=== PATIENT | male | born 1955 | race Caucasian/White ===

== ENCOUNTER 2023-02-12 15:34 | Inpatient (IN) ==
--- NOTE | 2023-02-12 15:50 | DR.ABDMALE ---
HPI Time seen Time Seen by Provider: 02/12/23 15:47 HPI comment HPI Comment: c/o rlq abd pain x 2 weeks worse with standing up no nausea no vomit no fever bm nl hx chf copd a fib pain is intermittent PMH PMH Past Medical History: COPD, Coronary Artery Disease and Hypertension Past Surgical History: Yes Surgical History: CABG/Valve Surgery Family History Family Medical History: Coronary Artery Disease and Hypertension Social History Do you use any recreational Drugs:: Yes ROS Review of Systems Constitutional: No Symptoms Reported Respiratoy: Non-Productive Cough Gastrointestinal/Abdominal: See HPI Musculoskeletal: No Symptoms Reported Hematologic/Lymphatic: No Symptoms Reported All Other Systems: Reviewed and Negative PE Vital Signs Vital Signs: Temp Pulse Resp BP Pulse Ox O2 Del Method 02/12/23 17:15 79 23 97 02/12/23 17:01 80 21 98 02/12/23 17:01 158/65 02/12/23 17:00 83 20 97 02/12/23 16:46 90 31 H 97 02/12/23 16:31 74 34 H 95 02/12/23 16:31 130/59 02/12/23 16:30 76 28 H 98 02/12/23 16:15 75 20 98 02/12/23 16:00 81 22 97 02/12/23 16:00 123/58 02/12/23 15:58 85 19 98 02/12/23 15:58 133/61 02/12/23 15:48 98.7 F 78 20 134/60 93 L Room Air Head Head Exam: Normal Inspection ENT ENT Exam: Normal Exam Chest Chest Inspection: Symmetric Chest Wall Rise Respiratory Respiratory Exam: Bilateral: Decreased Breath Sounds Abdominal Exam Abdominal Exam: Distention (obese ) and Other (obese tender rlq ?guard no rebound ) Back Back Exam: Normal Inspection Extremeties Extremities Exam: Edema (+3 edema) Psychiatric Psychiatric Exam: Normal Affect COURSE Treatment Treatment: spoke with Dr Serra who will admit for uncomplicated diverticulitis 6p ROR Labs Reviewed Laboratory Results Reviewed?: Yes 02/12/23 15:50 02/12/23 15:50 Laboratory: WBC 7.0 X10^3/uL (3.6-10.0) 02/12/23 15:50 RBC 4.57 X10^6/uL (4.7-6.0) L 02/12/23 15:50 Hgb 12.2 g/dL (13.5-18.0) L 02/12/23 15:50 Hct 38.1 % (42.0-54.0) L 02/12/23 15:50 MCV 83.3 fL (80.0-100.0) 02/12/23 15:50 MCH 26.8 pg (27.0-34.0) L 02/12/23 15:50 MCHC 32.1 g/dL (33.0-35.0) L 02/12/23 15:50 RDW 17.3 % (11.6-16.5) H 02/12/23 15:50 Plt Count 269 X10^3/uL (150.0-450.0) 02/12/23 15:50 MPV 8.2 fL (7.4-11.0) 02/12/23 15:50 Neut % (Auto) 66.4 % (42.0-75.0) 02/12/23 15:50 Lymph % (Auto) 19.7 % (21.0-51.0) L 02/12/23 15:50 [place] % (Auto) 8.9 % (0.0-13.0) 02/12/23 15:50 Eos % (Auto) 4.8 % (0.9-2.9) H 02/12/23 15:50 Baso % (Auto) 0.2 % (0.2-1.0) 02/12/23 15:50 Neut # (Auto) 4.6 x10^3/uL (2.2-4.8) 02/12/23 15:50 Lymph # (Auto) 1.4 X10^3/uL (1.3-2.9) 02/12/23 15:50 [place] # (Auto) 0.6 x10^3/uL (0.3-0.8) 02/12/23 15:50 Eos # (Auto) 0.3 x10^3/uL (0.0-0.2) H 02/12/23 15:50 Baso # (Auto) 0.0 X10^3/uL (0.0-0.1) 02/12/23 15:50 Absolute Nucleated RBC 0.1 /100WBC 02/12/23 15:50 Sodium 142 mmol/L (136-145) 02/12/23 15:50 Corrected Sodium TNP 02/12/23 15:50 Potassium 4.0 mmol/L (3.5-5.1) 02/12/23 15:50 Chloride 102 mmol/L (98-107) 02/12/23 15:50 Carbon Dioxide 38.0 mmol/L (21-32) H 02/12/23 15:50 BUN 29 mg/dL (7-18) H 02/12/23 15:50 Creatinine 0.99 mg/dL (0.70-1.30) 02/12/23 15:50 Est GFR (MDRD) Af Amer > 60 (>60) 02/12/23 15:50 Est GFR (MDRD) Non-Af > 60 (>60) 02/12/23 15:50 Glucose 98 mg/dL (65-99) 02/12/23 15:50 Calcium 9.4 mg/dL (8.5-10.1) 02/12/23 15:50 Corrected Calcium TNP 02/12/23 15:50 Total Bilirubin 0.40 mg/dL (0.2-1.0) 02/12/23 15:50 AST 13 Units/L (15-37) L 02/12/23 15:50 ALT 9 Units/L (12-78) L 02/12/23 15:50 Alkaline Phosphatase 44 Units/L (46-116) L 02/12/23 15:50 Troponin I High Sens 26.4 ng/L (4.0-60.0) 02/12/23 15:50 B-Natriuretic Peptide 788 pg/mL (0-79) H* 02/12/23 15:50 Total Protein 7.9 g/dL (6.4-8.2) 02/12/23 15:50 Albumin 3.4 g/dL (3.4-5.0) 02/12/23 15:50 Globulin 4.5 g/dL (2.5-4.5) 02/12/23 15:50 Albumin/Globulin Ratio 0.8 Ratio (1.1-2.1) L 02/12/23 15:50 Specimen Type Clean catch urine 02/12/23 15:53 Urine Color Yellow (YELLOW) 02/12/23 15:53 Urine Appearance Clear (CLEAR) 02/12/23 15:53 Urine pH 7.0 (5.0 - 8.0) 02/12/23 15:53 Ur Specific [place] 1.010 (1.000-1.030) 02/12/23 15:53 Urine Protein Negative (NEGATIVE) 02/12/23 15:53 Urine Glucose (UA) Negative (NEGATIVE) 02/12/23 15:53 Urine Ketones Negative (NEGATIVE) 02/12/23 15:53 Urine Blood Negative (NEGATIVE) 02/12/23 15:53 Urine Nitrite Negative (NEGATIVE) 02/12/23 15:53 Urine Bilirubin Negative (NEGATIVE) 02/12/23 15:53 Urine Urobilinogen Normal (NORMAL) 02/12/23 15:53 Ur Leukocyte Esterase Negative (NEGATIVE) 02/12/23 15:53 SARS-CoV-2 (PCR) Negative (NEGATIVE) 02/12/23 15:53 Influenza Type A (PCR) Negative (NEGATIVE) 02/12/23 15:53 Influenza Type B (PCR) Negative (NEGATIVE) 02/12/23 15:53 RSV (PCR) Negative (NEGATIVE) 02/12/23 15:53 XRAY X-ray Results: ct abd diverticulitis EKG Rate: 79 Rhythm: Afib Opioid Opioid Risk Tool Age (Elvis box if 16-45): No History of Preadolescent Sexual Abuse: No Total: 0 Total Score Risk Category: Low Risk Copyright: Bin LEI predicting aberrant behaviors Discharge Plan Diagnosis Discharge Problem: Abdominal pain determined by examination, CHF (congestive heart failure), Edema Hospital Course Hospital Course: pt has active diverticulitis with no abcess will admit Discharge Plan Patient Disposition: 09 ADMITTED INPATIENT Condition: Stable Prescriptions: No Action metformin 500 mg tablet 1 tab PO BID carvedilol 6.25 mg tablet 1 tab PO BID citalopram 40 mg tablet 0.5 tab PO QDAY lisinopril-hydrochlorothiazide 20-12.5 mg tablet 1 tab PO QDAY simvastatin 40 mg tablet 1 tab PO QPM cephalexin 500 mg capsule 1 cap PO QID esomeprazole magnesium 40 mg capsule,delayed release(DR/EC) 1 cap PO BID fenofibrate 160 mg tablet 1 tab PO QDAY aspirin 81 mg Capsule 81 mg PO QDAY furosemide [Lasix] 40 mg Tablet 40 mg PO BID Qty: 60 1RF Rx Instructions: Take one tab twice daily potassium chloride 10 mEq Capsule, Extended Release 20 meq PO QDAY Qty: 30 1RF Health Concerns: Post Hospitalization: new medications and changes needed to prevent readmission or further decline. Pt educated and given instructions on all concerns. Plan of Treatment: pt will be admitted to Dr Serra 6pm Follow ups/Referrals Follow ups/Referrals: Jeffrey Howell [Primary Care Provider] - 3 days Instructions Stand Alone Forms: Post Hospital Follow Up Care
[2023-02-12 15:51] VITALS: BMI 41.1
--- NOTE | 2023-02-12 15:53 | EKG ---
Test Reason : chest pain Blood Pressure : */* mmHG Vent. Rate : 79 BPM Atrial Rate : 227 BPM P-R Int : * ms QRS Dur : 118 ms QT Int : 368 ms P-R-T Axes : * -2 -13 degrees QTc Int : 421 ms Atrial flutter with variable AV block Incomplete right bundle branch block Cannot rule out Inferior infarct , age undetermined Cannot rule out Anterior infarct , age undetermined Abnormal ECG When compared with ECG of 06-AUG-2022 05:34, Atrial flutter has replaced Sinus rhythm Incomplete right bundle branch block has replaced Nonspecific intraventricular block Minimal criteria for Anterior infarct are now present Confirmed by Jerry Coley ([id number]) on 02/15/2023 6:30:35 AM Referred By: Confirmed By: Jerry Coley
[2023-02-12 16:01] LABS: BASOPHILS % (AUTO) 0.2 % (0.2-1.0); EOSINOPHILS # (AUTO) 0.3 x10^3/uL (0.0-0.2); EOSINOPHILS % (AUTO) 4.8 % (0.9-2.9); HEMATOCRIT 38.1 % (42.0-54.0); HEMOGLOBIN 12.2 g/dL (13.5-18.0); LYMPHOCYTES # (AUTO) 1.4 X10^3/uL (1.3-2.9); LYMPHOCYTES % (AUTO) 19.7 % (21.0-51.0); MEAN CORPUSCULAR HEMOGLOBIN 26.8 pg (27.0-34.0); MEAN CORPUSCULAR HGB CONC 32.1 g/dL (33.0-35.0); MEAN CORPUSCULAR VOLUME 83.3 fL (80.0-100.0); MEAN PLATELET VOLUME 8.2 fL (7.4-11.0); MONOCYTES # (AUTO) 0.6 x10^3/uL (0.3-0.8); MONOCYTES % (AUTO) 8.9 % (0.0-13.0); NEUTROPHILS # (AUTO) 4.6 x10^3/uL (2.2-4.8); NEUTROPHILS % (AUTO) 66.4 % (42.0-75.0); PLATELET COUNT 269 X10^3/uL (150.0-450.0); RED BLOOD COUNT 4.57 X10^6/uL (4.7-6.0); RED CELL DISTRIBUTION WIDTH 17.3 % (11.6-16.5)
[2023-02-12 16:02] LABS: BILIRUBIN,URINE NEGATIVE (NEGATIVE); BLOOD/HEMOGLOBIN,URINE NEGATIVE (NEGATIVE); GLUCOSE, URINE NEGATIVE (NEGATIVE); KETONES,URINE NEGATIVE (NEGATIVE); LEUKOCYTE ESTERASE ,URINE NEGATIVE (NEGATIVE); NITRITES,URINE NEGATIVE (NEGATIVE); PROTEIN,URINE NEGATIVE (NEGATIVE); UROBILINOGEN,URINE NORMAL (NORMAL)
[2023-02-12 16:15] LABS: ALANINE AMINOTRANSFERASE 9 Units/L (12-78); ALBUMIN 3.4 g/dL (3.4-5.0); ALKALINE PHOSPHATASE 44 Units/L (46-116); ASPARTATE AMINO TRANSFERASE 13 Units/L (15-37); BLOOD UREA NITROGEN 29 mg/dL (7-18); CALCIUM 9.4 mg/dL (8.5-10.1); CHLORIDE 102 mmol/L (98-107); CREATININE 0.99 mg/dL (0.70-1.30); GLUCOSE 98 mg/dL (65-99); SODIUM 142 mmol/L (136-145); TOTAL PROTEIN 7.9 g/dL (6.4-8.2); eGFR NON BLACK RACES > 60 (>60)
[2023-02-12 16:26] LABS: APPEARANCE,URINE CLEAR (CLEAR); COLOR,URINE YELLOW (YELLOW)
[2023-02-12] MEDS ORDERED: OMNIPAQUE 350 mg/mL 100 mL BTL 100 ML ONE (16:26)
--- NOTE | 2023-02-12 16:49 | RAD ---
EXAM:CHEST, 1 VIEWHISTORY:abd pain; BYPASS [id number]:08/08/2022FINDINGS:The cardiomediastinal silhouette is stable. Similar post sternotomy changes.No acute airspace disease. No pneumothorax or effusion.No acute osseous abnormality.IMPRESSION:No acute cardiopulmonary disease.THIS IS AN ELECTRONICALLY VERIFIED FINAL REPORT02/12/2023 4:46 PM - Electronically signed by Johnnie Uriarte MD
--- NOTE | 2023-02-12 16:54 | CT ---
HISTORYABD PAINSTUDYABDOMEN/PELVIS WITH CONCOMPARISONTECHNIQUEMultiple axial images of the abdomen and pelvis were obtained from the lung bases to the pubic symphysis after the administration of IV contrast. Dose reduction techniques including Automated Exposure Control (AEC) and adjustment of mA and kV were utilized.FINDINGSThe heart size is enlarged. There is a small right pleural effusion and mild bibasilar atelectasis. The liver is grossly normal. There are multiple stones in the gallbladder but no convincing evidence for cholecystitis. The pancreas is mildly atrophic. The spleen and adrenal glands are normal. The kidneys are both normal in size and enhancement and there is no mass, stone, or hydronephrosis on either side. The stomach is grossly normal as are the small bowel loops. The appendix is normal. There is diverticulosis in the distal colon and there is some mild inflammation in the fat surrounding the distal sigmoid colon and this is suggestive of mild sigmoid diverticulitis. Urinary bladder is grossly normal. The prostate gland measures 4.9 cm in diameter. There is severe systemic atherosclerosis. There are degenerative changes in the spine but there is no worrisome abnormality.IMPRESSION1. Small right pleural effusion and mild basilar atelectasis. 2. Cholelithiasis without cholecystitis. 3. Acute sigmoid DIVERTICULITIS, mild, without abscess or free air.Electronically signed by: Anibal Jama (Feb 12, 2023 16:53:26)
[2023-02-12] MEDS ORDERED: CIPRO IV 400 MG PREMIX* 400 MG/200 ML IV.SOLN. IV ONE ×2 (17:22→17:28)
[2023-02-12] MEDS ORDERED: MORPHINE SULFATE INJ 2 MG INJ IVP PRN (18:20)
[2023-02-12] MEDS ORDERED: ZOFRAN INJ 4 MG VIAL IVP PRN (18:20)
[2023-02-12] MEDS ORDERED: DUONEB 0.5 MG/3 MG (3 mL) NEB SCH (18:30)
[2023-02-12] MEDS ORDERED: NS 1,000 ML IV 1,000 ML IV SCH (19:00)
[2023-02-12] MEDS: FLAGYL IV PREMIX 500 MG BAG 500 MG/100 ML BAG IV SCH (20:26)
[2023-02-12] MEDS: DUONEB 0.5 MG/3 MG (3 mL) NEB SCH (20:50)
[2023-02-13] MEDS: FLAGYL IV PREMIX 500 MG BAG 500 MG/100 ML BAG IV SCH ×3 (04:09→21:02)
--- NOTE | 2023-02-13 05:16 | RAD ---
HISTORYSOB Relevant Clinical InformationSTUDYCHEST, 1 [id number]/13/2023FINDINGSThe trachea is midline. The cardiac silhouette is mildly enlarged. Changes of prior CABG surgery present.. The lungs are clear without focal infiltrate or effusion. The bony thorax is unremarkable.IMPRESSIONMild cardiomegalyNo active cardiopulmonary disease.Electronically signed by: Fermin Melendez (Feb 13, 2023 05:13:59)
[2023-02-13] MEDS: CIPRO IV 400 MG PREMIX* 400 MG/200 ML IV.SOLN. IV SCH ×2 (05:20→17:32)
[2023-02-13 06:29] LABS: BASOPHILS # (AUTO) 0.1 X10^3/uL (0.0-0.1); BASOPHILS % (AUTO) 1.2 % (0.2-1.0); EOSINOPHILS # (AUTO) 0.3 x10^3/uL (0.0-0.2); EOSINOPHILS % (AUTO) 4.8 % (0.9-2.9); HEMATOCRIT 36.3 % (42.0-54.0); HEMOGLOBIN 11.6 g/dL (13.5-18.0); LYMPHOCYTES # (AUTO) 1.3 X10^3/uL (1.3-2.9); LYMPHOCYTES % (AUTO) 23.1 % (21.0-51.0); MEAN CORPUSCULAR HEMOGLOBIN 26.7 pg (27.0-34.0); MEAN CORPUSCULAR HGB CONC 32.1 g/dL (33.0-35.0); MEAN CORPUSCULAR VOLUME 83.3 fL (80.0-100.0); MEAN PLATELET VOLUME 8.2 fL (7.4-11.0); MONOCYTES # (AUTO) 0.5 x10^3/uL (0.3-0.8); MONOCYTES % (AUTO) 9.3 % (0.0-13.0); NEUTROPHILS # (AUTO) 3.6 x10^3/uL (2.2-4.8); NEUTROPHILS % (AUTO) 61.6 % (42.0-75.0); PLATELET COUNT 234 X10^3/uL (150.0-450.0); RED BLOOD COUNT 4.36 X10^6/uL (4.7-6.0); RED CELL DISTRIBUTION WIDTH 17.4 % (11.6-16.5); WHITE BLOOD COUNT 5.8 X10^3/uL (3.6-10.0)
[2023-02-13 07:01] LABS: ALANINE AMINOTRANSFERASE 11 Units/L (12-78); ALBUMIN 3.1 g/dL (3.4-5.0); ALKALINE PHOSPHATASE 39 Units/L (46-116); ASPARTATE AMINO TRANSFERASE 14 Units/L (15-37); BLOOD UREA NITROGEN 27 mg/dL (7-18); CALCIUM 9.2 mg/dL (8.5-10.1); CARBON DIOXIDE 36.3 mmol/L (21-32); CHLORIDE 102 mmol/L (98-107); COR CA(FOR HYPOALB) 9.9 mg/dL (8.5-10.1); CREATININE 0.85 mg/dL (0.70-1.30); GLUCOSE 102 mg/dL (65-99); MAGNESIUM 1.8 mg/dL (2.0-2.9); POTASSIUM 3.5 mmol/L (3.5-5.1); SODIUM 142 mmol/L (136-145); TOTAL PROTEIN 7.3 g/dL (6.4-8.2); eGFR NON BLACK RACES > 60 (>60)
[2023-02-13] MEDS ORDERED: K-DUR TAB 20 MEQ PO SCH (08:00)
[2023-02-13] MEDS ORDERED: CONSULT PHARMACY - POTASSIUM & MAGNESIUM XX SCH (08:00)
[2023-02-13] MEDS: DUONEB 0.5 MG/3 MG (3 mL) NEB SCH ×2 (08:30→20:06)
[2023-02-13] MEDS: MAG-OX TAB PO SCH ×2 (09:34→10:59)
[2023-02-13] MEDS: NS + KCL 20 MEQ/L 1,000 ML IV SCH (09:44)
[2023-02-13] MEDS: SENOKOT PO SCH (11:39)
[2023-02-13] MEDS: LOVENOX INJ 40 MG SYR SC SCH (11:39)
--- NOTE | 2023-02-13 12:16 | DR.H&P ---
H&P - History & Physical for Day of: H&P Date: 02/12/23 - Chief Complaint Chief Complaint: RLQ ABDOMINAL PAIN - History of Present Illness History of Present Illness: IS A 67 YEAR OLD PATIENT OF . PRESENTED TO THE ER WITH COMPLAINTS OF RIGHT LOWER QUADRANT ABDOMINAL PAIN X 2 WEEKS. PAIN IS DESCRIBED INTERMITTENT, SHARP, AND WAS RATED A 6/10 ON ARRIVAL. HE REPORTS THAT PAIN IS WORSE WITH STANDING. HE DENIES NAUSEA, VOMITING, FEVER. HE DENIES HAVING A BOWEL MOVEMENT IN SEVERAL DAYS. HIS PMH INCLUDES: COPD, CAD, CHF, HTN, A-FIB, CABG. ON ARRIVAL TO THE HOSPITAL, HIS VITALS WERE: 98.7-78-20-93%-134/60. LABS WERE OBTAINED. WBC 7.0, RBC 4.57, HGB 12.2, HCT 38.1, PLT COUNT 269, SODIUM 142, POTASSIUM 4.0, CARBON DIOXIDE 38.0, BUN 29, CREATININE 0.99, GLUCOSE 98, CALCIUM 9.4, TOTAL BILI 0.40, AST 13, ALT 9, ALK PHOS 44, BNP 788, TOTAL PROTEIN 7.9, ALBUMIN 3.4. URINALYSIS WAS OBTAINED AND WAS UNREMARKABLE. COVID, INFLUENZA, AND RSV NEGATIVE. BLOOD CULTURES WERE SET UP. AN ABDOMEN/PELVIS CT WITH CONTRAST WAS OBTAINED AND REVEALED: 1. Small right pleural effusion and mild basilar atelectasis. 2. Cholelithiasis without cholecystitis. 3. Acute sigmoid DIVERTICULITIS, mild, without abscess or free air. CHEST XRAY WAS OBTAINED AND REVEALED: NO ACUTE CARDIOPULMONARY DISEASE. EKG REVEALED: ATRIAL FLUTTER WITH VIRIABLE AV BLOCK. INCOMPLETE RIGHT BUNDLE BRANCH BLOCK. HR 79 BPM. IN THE ER, HE WAS GIVEN CIPRO 400MG IV X 1 DOSE. HE WAS ADMITTED TO THE HOSPITAL INPATIENT STATUS FOR FURTHER EVALUATION AND TREATMENT OF ACUTE SIGMOID DIVERTICULITIS. HE WAS STARTED ON NORMAL SALINE WITH 20MEQ KCL AT 50 ML/HR, CIPRO 400MG IV Q12H, FLAGYL 500MG IV Q8H, DUONEBS BID, LOVENOX 40MG SC DAILY, MORPHINE SULFATE 2MG IV Q6H PRN, ZOFRAN 4MG IV Q6H PRN, AND SENNOSIDES 2 TABS PO DAILY. WE WILL RESUME HIS HOME MEDS WHEN THEY ARE MADE AVAILABLE TO US. OTHERWISE, WE PLAN TO FOLLOW UP WITH AM LABS AND CONTINUE TO MONITOR. TIME SPENT ON CLINICAL ASSESSMENT, REVIEWING LABS AND IMAGING, DECISION MAKING, AND DOCUMENTATION GREATER THAN 75 MINUTES. - Past Medical History Past Medical History: CHF, COPD, Coronary Artery Disease, Hypertension Additional Medical History: A-FIB - Past Surgical History Surgical History: Angioplasty/Stents - Family History Family Medical History: Coronary Artery Disease, Hypertension - Social History Does patient currently use any type of tobacco product: Yes Have you used tobacco products in the last 12 months: Yes Type of Tobacco Use: None Does any household member use tobacco: Yes Alcohol Use: None - Review of Systems Constitutional: Weakness Eyes: No Symptoms Reported ENT: No Symptoms Reported Cardiovascular: No Symptoms Reported Gastrointestinal: See HPI, Abdominal Pain, Constipation. denies: Nausea, Vomiting Genitourinary: No Symptoms Reported Musculoskeletal: No Symptoms Reported Skin: No Symptoms Reported Neurological: Weakness - Physical Exam Vital Signs: Vital Signs Temperature 97.8 F Pulse Rate [Left Brachial] 60 Pulse Rate 60 Respiratory Rate 20 Blood Pressure [Left Arm] 147/65 O2 Sat by Pulse Oximetry 96 O2 Sat by Pulse Oximetry 96 Oriented: Normal Eyes: Normal Ear: Normal Nose: Normal Throat: Normal Respiratory: Diminished Throughout Cardiovascular: Normal : Normal Auscultation: Bowel Sounds: Normal Palpation: Normal Tenderness: RLQ, Moderate Skin: Decreased [place] Musculoskeletal: Normal Psychiatric: Normal Mood Description: Calm Affect: Normal Speech Pattern: Clear - Assessment/Plan (1) Acute diverticulitis Status: Acute Plan: ADMIT, NORMAL SALINE WITH 20MEQ KCL AT 50 ML/HR, CIPRO 400MG IV Q12H, FLAGYL 500MG IV Q8H, DUONEBS BID, LOVENOX 40MG SC DAILY, MORPHINE SULFATE 2MG IV Q6H PRN, ZOFRAN 4MG IV Q6H PRN, AND SENNOSIDES 2 TABS PO DAILY. (2) CHF (congestive heart failure) Qualifiers: Heart failure type: unspecified Heart failure chronicity: chronic Qualified Code(s): I50.9 - Heart failure, unspecified Status: Chronic (3) COPD (chronic obstructive pulmonary disease) Qualifiers: COPD type: unspecified COPD Qualified Code(s): J44.9 - Chronic obstructive pulmonary disease, unspecified Status: Chronic (4) CAD (coronary artery disease) Qualifiers: Coronary Disease-Associated Artery/Lesion type: bypass graft [place] vs. transplanted heart: [place] heart Status: Chronic (5) HTN (hypertension) Qualifiers: Hypertension type: primary hypertension Qualified Code(s): I10 - Essential (primary) hypertension Status: Chronic - Allergies Allergies/Adverse Reactions: Allergies Allergy/AdvReac Type Severity Reaction Status Date / Time Sulfa (Sulfonamide Allergy Verified 08/05/22 17:01 Antibiotics) [SULFA] - Medications Home Medications: Home Medications Medication Instructions Recorded Confirmed aspirin 81 mg capsule 81 mg PO QDAY 08/05/22 08/05/22 carvedilol 6.25 mg tablet 1 tab PO BID blood pressure 08/05/22 08/05/22 cephalexin 500 mg capsule 1 cap PO QID 08/05/22 08/05/22 citalopram 40 mg tablet 0.5 tab PO QDAY 08/05/22 08/08/22 esomeprazole magnesium 40 mg 1 cap PO BID 08/05/22 08/05/22 capsule,delayed release fenofibrate 160 mg tablet 1 tab PO QDAY 08/05/22 08/05/22 lisinopril 20 1 tab PO QDAY 08/05/22 08/05/22 mg-hydrochlorothiazide 12.5 mg tablet metformin 500 mg tablet 1 tab PO BID 08/05/22 08/05/22 simvastatin 40 mg tablet 1 tab PO QPM cholesterol 08/05/22 08/05/22 Previous Rx's Medication Instructions Recorded furosemide 40 mg tablet (Lasix) 40 mg PO BID #60 tabs 08/09/22 potassium chloride 10 mEq 20 meq PO QDAY #30 caps 08/09/22 capsule,extended release
[2023-02-13] MEDS: NICOTINE PATCH TD SCH (22:07)
[2023-02-14] MEDS: NS + KCL 20 MEQ/L 1,000 ML IV SCH (03:12)
[2023-02-14] MEDS: CIPRO IV 400 MG PREMIX* 400 MG/200 ML IV.SOLN. IV SCH ×2 (04:03→16:26)
[2023-02-14] MEDS: FLAGYL IV PREMIX 500 MG BAG 500 MG/100 ML BAG IV SCH ×3 (05:33→21:45)
[2023-02-14 05:56] LABS: BASOPHILS # (AUTO) 0.1 X10^3/uL (0.0-0.1); BASOPHILS % (AUTO) 1.2 % (0.2-1.0); EOSINOPHILS # (AUTO) 0.3 x10^3/uL (0.0-0.2); EOSINOPHILS % (AUTO) 5.1 % (0.9-2.9); HEMATOCRIT 35.4 % (42.0-54.0); HEMOGLOBIN 11.5 g/dL (13.5-18.0); LYMPHOCYTES # (AUTO) 1.2 X10^3/uL (1.3-2.9); LYMPHOCYTES % (AUTO) 22.2 % (21.0-51.0); MEAN CORPUSCULAR HGB CONC 32.6 g/dL (33.0-35.0); MEAN CORPUSCULAR VOLUME 82.6 fL (80.0-100.0); MEAN PLATELET VOLUME 8.3 fL (7.4-11.0); MONOCYTES # (AUTO) 0.6 x10^3/uL (0.3-0.8); MONOCYTES % (AUTO) 10.2 % (0.0-13.0); NEUTROPHILS # (AUTO) 3.3 x10^3/uL (2.2-4.8); NEUTROPHILS % (AUTO) 61.3 % (42.0-75.0); PLATELET COUNT 225 X10^3/uL (150.0-450.0); RED BLOOD COUNT 4.28 X10^6/uL (4.7-6.0); WHITE BLOOD COUNT 5.4 X10^3/uL (3.6-10.0)
[2023-02-14 06:09] LABS: ALANINE AMINOTRANSFERASE 9 Units/L (12-78); ALKALINE PHOSPHATASE 39 Units/L (46-116); ASPARTATE AMINO TRANSFERASE 13 Units/L (15-37); BLOOD UREA NITROGEN 17 mg/dL (7-18); CALCIUM 9.1 mg/dL (8.5-10.1); CARBON DIOXIDE 33.3 mmol/L (21-32); CHLORIDE 103 mmol/L (98-107); COR CA(FOR HYPOALB) 9.9 mg/dL (8.5-10.1); COR NA(FOR HYPERGLY) 140 mmol/L (136-145); CREATININE 0.76 mg/dL (0.70-1.30); GLUCOSE 114 mg/dL (65-99); POTASSIUM 4.1 mmol/L (3.5-5.1); SODIUM 140 mmol/L (136-145); TOTAL PROTEIN 7.1 g/dL (6.4-8.2); eGFR NON BLACK RACES > 60 (>60)
--- NOTE | 2023-02-14 06:11 | RAD ---
HISTORYAbdominal painSTUDYKUBCOMPARISONNoneFIND INGSResolution is limited by the patient's body habitus. Abdominal gas pattern is nonspecific and nonobstructive. No abnormal masses or definite abnormal calcifications are identified. Regional skeleton appears intact.IMPRESSIONUnremarkable KUBElectronically signed by: SASKIA GARCÍA (Feb 14, 2023 06:08:27)
--- NOTE | 2023-02-14 06:25 | RAD ---
HISTORYShortness of breathSTUDYChest AP [id number]/14/2023 and multiple priorsFINDINGSPatient is status post median sternotomy and CABG. Heart remains enlarged. No congestive heart failure is noted. No acute infiltrates or pleural effusions are identified. There is a 1 cm nodular density in the right lung apex. Further evaluation with chest CT WITH CONTRAST is recommended in order to exclude a developing neoplasm. Remainder of the lung wilder are clear. No pleural effusions are identified. Bony thorax is unremarkable.IMPRESSIONNo acute infiltratesRight apical nodule requiring further evaluation with CHEST CT WITH CONTRASTCardiomegaly without congestive heart failureElectronically signed by: SASKIA GARCÍA (Feb 14, 2023 06:23:39)
[2023-02-14] MEDS: DUONEB 0.5 MG/3 MG (3 mL) NEB SCH ×2 (08:55→20:39)
[2023-02-14] MEDS: SENOKOT PO SCH (09:37)
[2023-02-14] MEDS: LOVENOX INJ 40 MG SYR SC SCH (09:38)
[2023-02-14] MEDS ORDERED: OMNIPAQUE 350 mg/mL 100 mL BTL 100 ML ONE (09:44)
--- NOTE | 2023-02-14 12:59 | CT ---
EXAM:CT CHEST WITH IV CONTRASTHISTORY:evaluation for nodule seen on cxr -COMPARISON:X-ray 02/14/2023 and 08/05/2022TECHNIQUE:Multiple axial images of the chest were obtained from the thoracic inlet to the upper abdomenwith the administration of IV contrast. Sagittal and coronal reformations are performed. Dose reduction techniques including Automated Exposure Control (AEC) and adjustment of mA and kV were utilized.FINDINGS:There is a moderate-sized right pleural effusion. No left pleural effusion is seen but there is mild subpleural fat deposition bilaterally. Areas of atelectasis are seen in the dependent portions of both lungs. Prominent cardiophrenic fat pads are seen with mild atelectasis in the lingula. 2 very tiny nodules are seen in the right lung apex. A few other very tiny nodules are seen bilaterally in the lungs but all of the nodules measure 2 mm or less in size.There is a sclerotic focus in the anterior and of the right 3rd rib that accounts for the nodular density on x-ray. It is probably a benign bone island and is likely present on a prior CT in July. A few old healed left lower rib fractures are seen with mild deformity. No mediastinal lymphadenopathy.There is cardiomegaly without CHF. There is dilation of the mid ascending thoracic aorta to 4.6 cm in diameter. It tapers in the arch and measures 3.5 cm in the proximal descending thoracic region. The aorta measures 2.9 cm at the diaphragm. There is cholelithiasis without suggestion of cholecystitis. Exophytic 1.0 cm cyst is suspected in the left kidney.IMPRESSION:Questionable lung nodule seen on x-ray is within the anterior head of the right 3rd rib and is probably a benign bone island. This is similar in appearance to March x-ray exam.There are several tiny nodules in the lungs but these measure 2 mm or less in size. Fleischner society recommends if patient is at low risk for lung cancer, no further follow up needed; if patient is at high risk for lung cancer, optional followup CT at 12 months.Cardiomegaly without evidence of CHF. Moderate right pleural effusion is seen.Thoracic aortic aneurysm measures up to 4.6 cm in diameter in the mid ascending region.THIS IS AN ELECTRONICALLY VERIFIED FINAL REPORT02/14/2023 12:56 PM - Electronically signed by Bud Hill MD
--- NOTE | 2023-02-14 13:45 | PCM.PROG ---
Progress Note - Progress Note for Day of Date of Exam: 02/14/23 - Subjective Subjective: IS CURRENTLY INPATIENT STATUS FOR TREATMENT OF ACUTE DIVERTICULITIS. HE HAS A PMH OF CHF, COPD, CAD, AND HTN. TODAY, HE IS ALERT AND ORIENTED, SITTING UP ON THE SIDE OF THE BED ON MORNING ROUNDS. HE CONTINUES TO COMPLAIN OF OCCASIONAL DISCOMFORT, BUT DOES REPORT IMPROVEMENT SINCE ADMISSION. HE ALSO COMPLAINS OF OCCASIONAL SHORTNESS OF BREATH. CHEST XRAY ON ADMISSION DID REVEAL A PLEURAL EFFUSION. ON EXAMINATION TODAY, HEART IS REGULAR IN RATE AND RHYTHM. BILATERAL LUNGS ARE NOTED WITH DIMINISHED LUNG SOUNDS THROUGHOUT. ABDOMEN IS ROUND, SOFT, AND NON-TENDER WITH NORMAL BOWEL SOUNDS NOTED IN ALL QUADRANTS. GOOD RANGE OF MOTION NOTED TO UPPER AND LOWER EXTREMITIES. TRACE EDEMA NOTED TO BILATERAL LOWER EXTREMITIES. HIS VITALS THIS MORNING ARE: 98.1-75-18-98%-174/81. LABS WERE OBTAINED. WBC 5.4, RBC 4.28, HGB 11.5, HCT 35.4, PLT COUNT 225, SODIUM 140, POTASSIUM 4.1, CHLORIDE 103, CARBON DIOXIDE 33.3, BUN 17, CREATININE 0.76, GLUCOSE 114, CALCIUM 9.1, MAGNESIUM 1.9, AST 13, ALT 9, ALK PHOS 39, TOTAL PROTEIN 7.1, ALBUMIN 3.0. BLOOD CULTURES ARE PENDING. A CHEST XRAY WAS OBTAINED THIS MORNING AND REVEALED: No acute infiltrates. Right apical nodule requiring further evaluation with CHEST CT WITH. CONTRAST. Cardiomegaly without congestive heart failure. HE HAS TOLERATED A LIQUID DIET WELL. HE IS CURRENTLY RECEIVING NORMAL SALINE WITH 20MEQ KCL AT 50 ML/HR, CIPRO 400MG IV Q12H, FLAGYL 500MG IV Q8H, DUONEBS BID, LOVENOX 40MG SC DAILY, MORPHINE SULFATE 2MG IV Q6H PRN, ZOFRAN 4MG IV Q6H PRN, AND SENNOSIDES 2 TABS PO DAILY. WE WILL RESUME HIS HOME MEDS TODAY. WE WILL OBTAIN A CHEST CT TO HAVE A FURTHER LOOK AT THE NODULE. WE WILL INCREASE HIM TO A SOFT DIET. OTHERWISE, WE WILL FOLLOW UP WITH AM LABS AND CONTINUE TO MONITOR. - Past Medical Family Social History Past Med/Fam/Surg Hx: No changes since H&P Allergies: Allergies Sulfa (Sulfonamide Antibiotics) [SULFA] Allergy (Verified 08/05/22 17:01) - Review of Systems ROS: No change since H&P - Vital Signs and I&O's Vital Signs: Vital Signs Temperature 98 F Temperature 98.1 F Pulse Rate [Left Brachial] 87 Pulse Rate [Left Brachial] 75 Pulse Rate 84 Respiratory Rate 18 Respiratory Rate 18 Blood Pressure [Left Arm] 131/64 Blood Pressure [Left Arm] 174/81 O2 Sat by Pulse Oximetry 97 O2 Sat by Pulse Oximetry 94 O2 Sat by Pulse Oximetry 98 Intake and Output: Intake & Output 02/12/23 02/13/23 02/14/23 02/15/23 11:59 11:59 11:59 11:59 Intake Total 350 / 350 3482 / 3482 Balance 350 / 350 3482 / 3482 - Physical Exam Oriented: Normal Eyes: Normal Ear: Normal Nose: Normal Throat: Normal Respiratory: Generalized, Diminished Cardiovascular: Normal : Normal Auscultation: Bowel Sounds: Normal Palpation: Normal Tenderness: RLQ, Moderate Skin: Decreased [place] Musculoskeletal: Normal Psychiatric: Normal Mood Description: Calm Affect: Normal Speech Pattern: Clear, Appropriate - Laboratory and Diagnostics Result Diagrams: 02/14/23 05:29 02/14/23 05:29 Labs: 02/12/23 17:35 Blood Blood Culture - Preliminary 02/12/23 17:29 Blood Blood Culture - Preliminary Laboratory WBC 5.4 X10^3/uL (3.6-10.0) 02/14/23 05:29 RBC 4.28 X10^6/uL (4.7-6.0) L 02/14/23 05:29 Hgb 11.5 g/dL (13.5-18.0) L 02/14/23 05:29 Hct 35.4 % (42.0-54.0) L 02/14/23 05:29 MCV 82.6 fL (80.0-100.0) 02/14/23 05:29 MCH 27.0 pg (27.0-34.0) 02/14/23 05:29 MCHC 32.6 g/dL (33.0-35.0) L 02/14/23 05:29 RDW 17.0 % (11.6-16.5) H 02/14/23 05:29 Plt Count 225 X10^3/uL (150.0-450.0) 02/14/23 05:29 MPV 8.3 fL (7.4-11.0) 02/14/23 05:29 Neut % (Auto) 61.3 % (42.0-75.0) 02/14/23 05:29 Lymph % (Auto) 22.2 % (21.0-51.0) 02/14/23 05:29 [place] % (Auto) 10.2 % (0.0-13.0) 02/14/23 05:29 Eos % (Auto) 5.1 % (0.9-2.9) H 02/14/23 05:29 Baso % (Auto) 1.2 % (0.2-1.0) H 02/14/23 05:29 Neut # (Auto) 3.3 x10^3/uL (2.2-4.8) 02/14/23 05:29 Lymph # (Auto) 1.2 X10^3/uL (1.3-2.9) L 02/14/23 05:29 [place] # (Auto) 0.6 x10^3/uL (0.3-0.8) 02/14/23 05:29 Eos # (Auto) 0.3 x10^3/uL (0.0-0.2) H 02/14/23 05:29 Baso # (Auto) 0.1 X10^3/uL (0.0-0.1) 02/14/23 05:29 Absolute Nucleated RBC 0.0 /100WBC 02/14/23 05:29 Sodium 140 mmol/L (136-145) 02/14/23 05:29 Corrected Sodium 140 mmol/L (136-145) 02/14/23 05:29 Potassium 4.1 mmol/L (3.5-5.1) 02/14/23 05:29 Chloride 103 mmol/L (98-107) 02/14/23 05:29 Carbon Dioxide 33.3 mmol/L (21-32) H 02/14/23 05:29 BUN 17 mg/dL (7-18) 02/14/23 05:29 Creatinine 0.76 mg/dL (0.70-1.30) 02/14/23 05:29 Est GFR (MDRD) Af Amer > 60 (>60) 02/14/23 05:29 Est GFR (MDRD) Non-Af > 60 (>60) 02/14/23 05:29 Glucose 114 mg/dL (65-99) H 02/14/23 05:29 Calcium 9.1 mg/dL (8.5-10.1) 02/14/23 05:29 Corrected Calcium 9.9 mg/dL (8.5-10.1) 02/14/23 05:29 Magnesium 1.9 mg/dL (2.0-2.9) L 02/14/23 05:29 Total Bilirubin 0.40 mg/dL (0.2-1.0) 02/14/23 05:29 AST 13 Units/L (15-37) L 02/14/23 05:29 ALT 9 Units/L (12-78) L 02/14/23 05:29 Alkaline Phosphatase 39 Units/L (46-116) L 02/14/23 05:29 Troponin I High Sens 26.4 ng/L (4.0-60.0) 02/12/23 15:50 B-Natriuretic Peptide 788 pg/mL (0-79) H* 02/12/23 15:50 Total Protein 7.1 g/dL (6.4-8.2) 02/14/23 05:29 Albumin 3.0 g/dL (3.4-5.0) L 02/14/23 05:29 Globulin 4.1 g/dL (2.5-4.5) 02/14/23 05:29 Albumin/Globulin Ratio 0.7 Ratio (1.1-2.1) L 02/14/23 05:29 Specimen Type Clean catch urine 02/12/23 15:53 Urine Color Yellow (YELLOW) 02/12/23 15:53 Urine Appearance Clear (CLEAR) 02/12/23 15:53 Urine pH 7.0 (5.0 - 8.0) 02/12/23 15:53 Ur Specific [place] 1.010 (1.000-1.030) 02/12/23 15:53 Urine Protein Negative (NEGATIVE) 02/12/23 15:53 Urine Glucose (UA) Negative (NEGATIVE) 02/12/23 15:53 Urine Ketones Negative (NEGATIVE) 02/12/23 15:53 Urine Blood Negative (NEGATIVE) 02/12/23 15:53 Urine Nitrite Negative (NEGATIVE) 02/12/23 15:53 Urine Bilirubin Negative (NEGATIVE) 02/12/23 15:53 Urine Urobilinogen Normal (NORMAL) 02/12/23 15:53 Ur Leukocyte Esterase Negative (NEGATIVE) 02/12/23 15:53 SARS-CoV-2 (PCR) Negative (NEGATIVE) 02/12/23 15:53 Influenza Type A (PCR) Negative (NEGATIVE) 02/12/23 15:53 Influenza Type B (PCR) Negative (NEGATIVE) 02/12/23 15:53 RSV (PCR) Negative (NEGATIVE) 02/12/23 15:53 - Plan (1) Acute diverticulitis Status: Acute Plan: NORMAL SALINE WITH 20MEQ KCL AT 50 ML/HR, CIPRO 400MG IV Q12H, FLAGYL 500MG IV Q8H, DUONEBS BID, LOVENOX 40MG SC DAILY, MORPHINE SULFATE 2MG IV Q6H PRN, ZOFRAN 4MG IV Q6H PRN, AND SENNOSIDES 2 TABS PO DAILY. SOFT DIET (2) Pleural effusion Status: Acute (3) CHF (congestive heart failure) Status: Chronic Qualifiers: Heart failure type: unspecified Heart failure chronicity: chronic Qualified Code(s): I50.9 - Heart failure, unspecified (4) COPD (chronic obstructive pulmonary disease) Status: Chronic Qualifiers: COPD type: unspecified COPD Qualified Code(s): J44.9 - Chronic obstructive pulmonary disease, unspecified (5) CAD (coronary artery disease) Status: Chronic Qualifiers: Coronary Disease-Associated Artery/Lesion type: bypass graft Lummi vs. tr ansplanted heart: [place] heart (6) HTN (hypertension) Status: Chronic Qualifiers: Hypertension type: primary hypertension Qualified Code(s): I10 - Essential (primary) hypertension
[2023-02-14] MEDS ORDERED: NS 1,000 ML IV 1,000 ML IV SCH (14:00)
[2023-02-14] MEDS ORDERED: NITRODUR PATCH 0.2 MG/HR TD SCH (14:00)
[2023-02-14] MEDS ORDERED: GLUCOPHAGE ONE ×2 (14:14→21:41)
[2023-02-14] MEDS: ZESTORETIC 10/ 12.5MG PO SCH (14:25)
[2023-02-14] MEDS: GLUCOPHAGE PO SCH ×2 (14:25→21:45)
[2023-02-14] MEDS: ASPIRIN EC 81 MG PO SCH (14:25)
[2023-02-14] MEDS: COLACE CAP 100 MG PO SCH (14:25)
[2023-02-14] MEDS: COREG TAB 6.25 MG PO SCH ×2 (14:25→21:45)
[2023-02-14] MEDS: NexIUM PO SCH ×2 (14:25→21:45)
[2023-02-14] MEDS: CELEXA PO SCH (14:25)
[2023-02-14] MEDS: MICRO K EXTEN CAP 10 MEQ PO SCH (14:25)
[2023-02-14] MEDS: TRICOR TAB 160 MG PO SCH (14:25)
[2023-02-14] MEDS: ZESTRIL TAB 10 MG PO SCH (14:36)
[2023-02-14] MEDS: LASIX PO SCH ×2 (16:26→16:33)
[2023-02-14] MEDS ORDERED: ZOCOR TAB 40 MG PO SCH (21:00)
[2023-02-14] MEDS: NICOTINE PATCH TD SCH (21:45)
[2023-02-15 04:29] VITALS: O2SAT 96
[2023-02-15] MEDS: CIPRO IV 400 MG PREMIX* 400 MG/200 ML IV.SOLN. IV SCH (04:38)
[2023-02-15] MEDS: FLAGYL IV PREMIX 500 MG BAG 500 MG/100 ML BAG IV SCH (05:40)
[2023-02-15 06:10] LABS: BASOPHILS # (AUTO) 0.1 X10^3/uL (0.0-0.1); BASOPHILS % (AUTO) 1.1 % (0.2-1.0); EOSINOPHILS # (AUTO) 0.3 x10^3/uL (0.0-0.2); EOSINOPHILS % (AUTO) 5.5 % (0.9-2.9); HEMATOCRIT 36.9 % (42.0-54.0); HEMOGLOBIN 11.8 g/dL (13.5-18.0); LYMPHOCYTES # (AUTO) 1.3 X10^3/uL (1.3-2.9); LYMPHOCYTES % (AUTO) 22.2 % (21.0-51.0); MEAN CORPUSCULAR HEMOGLOBIN 26.5 pg (27.0-34.0); MEAN CORPUSCULAR HGB CONC 31.8 g/dL (33.0-35.0); MEAN CORPUSCULAR VOLUME 83.2 fL (80.0-100.0); MEAN PLATELET VOLUME 8.5 fL (7.4-11.0); MONOCYTES # (AUTO) 0.7 x10^3/uL (0.3-0.8); MONOCYTES % (AUTO) 11.6 % (0.0-13.0); NEUTROPHILS # (AUTO) 3.5 x10^3/uL (2.2-4.8); NEUTROPHILS % (AUTO) 59.6 % (42.0-75.0); PLATELET COUNT 224 X10^3/uL (150.0-450.0); RED BLOOD COUNT 4.44 X10^6/uL (4.7-6.0); RED CELL DISTRIBUTION WIDTH 17.1 % (11.6-16.5); WHITE BLOOD COUNT 5.8 X10^3/uL (3.6-10.0)
[2023-02-15 06:32] LABS: ALANINE AMINOTRANSFERASE 9 Units/L (12-78); ALBUMIN 3.1 g/dL (3.4-5.0); ALKALINE PHOSPHATASE 40 Units/L (46-116); ASPARTATE AMINO TRANSFERASE 20 Units/L (15-37); BLOOD UREA NITROGEN 15 mg/dL (7-18); CALCIUM 8.9 mg/dL (8.5-10.1); CARBON DIOXIDE 34.3 mmol/L (21-32); CHLORIDE 103 mmol/L (98-107); COR CA(FOR HYPOALB) 9.6 mg/dL (8.5-10.1); CREATININE 0.78 mg/dL (0.70-1.30); GLUCOSE 102 mg/dL (65-99); MAGNESIUM 1.7 mg/dL (2.0-2.9); POTASSIUM 4.3 mmol/L (3.5-5.1); SODIUM 141 mmol/L (136-145); TOTAL PROTEIN 7.3 g/dL (6.4-8.2); eGFR NON BLACK RACES > 60 (>60)
[2023-02-15 08:42] VITALS: BP 164/74; PULSE 88; RESP 20; TEMP 98.1
[2023-02-15] MEDS ORDERED: GLUCOPHAGE ONE (09:00)
[2023-02-15] MEDS: DUONEB 0.5 MG/3 MG (3 mL) NEB SCH (09:02)
[2023-02-15] MEDS: CELEXA PO SCH (09:42)
[2023-02-15] MEDS: TRICOR TAB 160 MG PO SCH (09:43)
[2023-02-15] MEDS: ZESTRIL TAB 10 MG PO SCH (09:43)
[2023-02-15] MEDS: ZESTORETIC 10/ 12.5MG PO SCH (09:43)
[2023-02-15] MEDS: COREG TAB 6.25 MG PO SCH (09:43)
[2023-02-15] MEDS: COLACE CAP 100 MG PO SCH (09:44)
[2023-02-15] MEDS: LASIX PO SCH (09:44)
[2023-02-15] MEDS: GLUCOPHAGE PO SCH (09:45)
[2023-02-15] MEDS: MICRO K EXTEN CAP 10 MEQ PO SCH (09:45)
[2023-02-15] MEDS: NexIUM PO SCH (09:45)
[2023-02-15] MEDS: SENOKOT PO SCH (09:46)
[2023-02-15] MEDS: LOVENOX INJ 40 MG SYR SC SCH (09:47)
[2023-02-15] MEDS: ASPIRIN EC 81 MG PO SCH (09:47)
--- NOTE | 2023-02-15 13:03 | RAD ---
HISTORYWeakness SOBSTUDYPortable AP chestCOMPARISONSeptember 2022FINDINGSCardiomegaly with sternal wires and increasing pulmonary vascular congestion/dilatation. Interstitial markings are slightly more prominent. There is no consolidation or pleural fluid.IMPRESSIONStable cardiomegaly with slight increase in pulmonary vascular congestion. No localized pneumonia or pneumothorax demonstrated.Electronically signed by: SEBAS CHAVEZ (Feb 15, 2023 13:01:59)
--- NOTE | 2023-02-19 16:09 | W.DIS.FURT ---
Summary of Discharge Discharge Summary of Date Date of Exam: 02/15/23 Admission Date Date of Admission: 02/12/23 Admission Diagnosis Patient Problems (Updated 02/14/23 @ 13:45 by Andrea Serra) Abdominal pain determined by examination (Acute) R10.9 Acute diverticulitis (Acute) K57.92 COPD (chronic obstructive pulmonary disease) (Chronic) J44.9 CAD (coronary artery disease) (Chronic) I25.10 HTN (hypertension) (Chronic) I10 Pleural effusion (Acute) J90 CHF (congestive heart failure) (Chronic) I50.9 Edema (Acute) R60.9 Hospital Course: Mr. Mills is a 67-year-old male with a past medical history of COPD, CAD, CHF, hypertension, atrial fibrillation and CABG presented with right lower quadrant abdominal pain that has been going on for 2 weeks. He describes the pain as being intermittent and sharp. Denied nausea, vomiting, fever or chills. He has not had a bowel movement in several days. In the ER abdominal CT showed acute sigmoid diverticulitis mild, without abscess or free air. Chest x-ray was negative. COVID, flu and RSV were all negative. Patient was admitted for further management. Dr. Estrada with general surgery was also consulted and recommended IV antibiotics. Patient's labs were monitored daily and electrolytes were replaced as needed. He was started on IV Flagyl and Cipro. His home medications were restarted. He was also given antiemetics as needed. His diet was advanced as tolerated. He was feeling better and able to ambulate in the room. He was stable for discharge. He was discharged on p.o. antibiotics. He will need to follow-up with PCP and GI for colonoscopy as outpatient. Vital Signs: Vital Signs (72 hours) 02/12/23 15:48 02/12/23 15:58 02/12/23 15:58 Temperature 98.7 F Pulse Rate 78 85 Pulse Rate [Left Brachial] Pulse Rate [Right Brachial] Respiratory Rate 20 19 Blood Pressure 134/60 133/61 Blood Pressure [Left Arm] O2 Sat by Pulse Oximetry 93 L 98 Oxygen Delivery Method Room Air Oxygen Flow Rate FIO2% 02/12/23 16:00 02/12/23 16:00 02/12/23 16:15 Temperature Pulse Rate 81 75 Pulse Rate [Left Brachial] Pulse Rate [Right Brachial] Respiratory Rate 22 20 Blood Pressure 123/58 Blood Pressure [Left Arm] O2 Sat by Pulse Oximetry 97 98 Oxygen Delivery Method Oxygen Flow Rate FIO2% 02/12/23 16:30 02/12/23 16:31 02/12/23 16:31 Temperature Pulse Rate 76 74 Pulse Rate [Left Brachial] Pulse Rate [Right Brachial] Respiratory Rate 28 H 34 H Blood Pressure 130/59 Blood Pressure [Left Arm] O2 Sat by Pulse Oximetry 98 95 Oxygen Delivery Method Oxygen Flow Rate FIO2% 02/12/23 16:46 02/12/23 17:00 02/12/23 17:01 Temperature Pulse Rate 90 83 Pulse Rate [Left Brachial] Pulse Rate [Right Brachial] Respiratory Rate 31 H 20 Blood Pressure 158/65 Blood Pressure [Left Arm] O2 Sat by Pulse Oximetry 97 97 Oxygen Delivery Method Oxygen Flow Rate FIO2% 02/12/23 17:01 02/12/23 17:15 02/12/23 17:30 Temperature Pulse Rate 80 79 74 Pulse Rate [Left Brachial] Pulse Rate [Right Brachial] Respiratory Rate 21 23 21 Blood Pressure Blood Pressure [Left Arm] O2 Sat by Pulse Oximetry 98 97 98 Oxygen Delivery Method Oxygen Flow Rate FIO2% 02/12/23 17:30 02/12/23 17:45 02/12/23 18:00 Temperature Pulse Rate 79 76 Pulse Rate [Left Brachial] Pulse Rate [Right Brachial] Respiratory Rate 22 23 Blood Pressure 146/72 Blood Pressure [Left Arm] O2 Sat by Pulse Oximetry 99 98 Oxygen Delivery Method Oxygen Flow Rate FIO2% 02/12/23 18:00 02/12/23 18:15 02/12/23 18:30 Temperature Pulse Rate 76 Pulse Rate [Left Brachial] Pulse Rate [Right Brachial] Respiratory Rate 20 Blood Pressure 144/63 138/63 Blood Pressure [Left Arm] O2 Sat by Pulse Oximetry 97 Oxygen Delivery Method Oxygen Flow Rate FIO2% 02/12/23 18:30 02/12/23 18:55 02/12/23 19:05 Temperature Pulse Rate 78 Pulse Rate [Left Brachial] Pulse Rate [Right Brachial] Respiratory Rate 24 Blood Pressure Blood Pressure [Left Arm] O2 Sat by Pulse Oximetry 97 97 Oxygen Delivery Method Nasal Cannula Nasal Cannula Oxygen Flow Rate 2 FIO2% 28 02/12/23 18:35 02/12/23 19:00 02/12/23 20:00 Temperature 99 F Pulse Rate Pulse Rate [Left Brachial] 86 Pulse Rate [Right Brachial] Respiratory Rate 20 Blood Pressure Blood Pressure [Left Arm] 160/71 O2 Sat by Pulse Oximetry 95 Oxygen Delivery Method Nasal Cannula Nasal Cannula Oxygen Flow Rate 2 2 FIO2% 02/12/23 20:50 02/13/23 00:00 02/13/23 04:00 Temperature 98.1 F 97.9 F Pulse Rate 79 Pulse Rate [Left Brachial] 65 67 Pulse Rate [Right Brachial] Respiratory Rate 18 20 Blood Pressure Blood Pressure [Left Arm] 129/60 155/70 O2 Sat by Pulse Oximetry 96 98 98 Oxygen Delivery Method Oxygen Flow Rate FIO2% 02/13/23 08:00 02/13/23 08:30 02/13/23 08:30 Temperature 97.8 F Pulse Rate 60 Pulse Rate [Left Brachial] 60 Pulse Rate [Right Brachial] Respiratory Rate 20 Blood Pressure Blood Pressure [Left Arm] 147/65 O2 Sat by Pulse Oximetry 96 96 Oxygen Delivery Method Room Air Nasal Cannula Oxygen Flow Rate 1 FIO2% 24 02/13/23 07:00 02/13/23 12:00 02/13/23 16:00 Temperature 97.7 F 97.8 F Pulse Rate Pulse Rate [Left Brachial] 58 L 77 Pulse Rate [Right Brachial] Respiratory Rate 20 20 Blood Pressure Blood Pressure [Left Arm] 146/78 140/87 O2 Sat by Pulse Oximetry 98 91 L Oxygen Delivery Method Nasal Cannula Room Air Room Air Oxygen Flow Rate 2 FIO2% 02/13/23 20:05 02/13/23 20:05 02/13/23 20:00 Temperature 97.9 F Pulse Rate 80 Pulse Rate [Left Brachial] 93 H Pulse Rate [Right Brachial] Respiratory Rate 20 Blood Pressure Blood Pressure [Left Arm] 158/80 O2 Sat by Pulse Oximetry 97 96 Oxygen Delivery Method Nasal Cannula Room Air Oxygen Flow Rate 1 FIO2% 24 02/14/23 00:00 02/13/23 19:00 02/14/23 04:00 Temperature 98.3 F 98.2 F Pulse Rate Pulse Rate [Left Brachial] 81 87 Pulse Rate [Right Brachial] Respiratory Rate 18 20 Blood Pressure Blood Pressure [Left Arm] 160/75 180/79 O2 Sat by Pulse Oximetry 97 98 Oxygen Delivery Method Room Air Nasal Cannula Room Air Oxygen Flow Rate 2 FIO2% 02/14/23 08:55 02/14/23 08:55 02/14/23 08:00 Temperature 98.1 F Pulse Rate 84 Pulse Rate [Left Brachial] 75 Pulse Rate [Right Brachial] Respiratory Rate 18 Blood Pressure Blood Pressure [Left Arm] 174/81 O2 Sat by Pulse Oximetry 94 L 98 Oxygen Delivery Method Nasal Cannula Room Air Oxygen Flow Rate 1 FIO2% 24 02/14/23 07:00 02/14/23 12:00 02/14/23 16:00 Temperature 98 F 98.4 F Pulse Rate Pulse Rate [Left Brachial] 87 75 Pulse Rate [Right Brachial] Respiratory Rate 18 20 Blood Pressure Blood Pressure [Left Arm] 131/64 150/72 O2 Sat by Pulse Oximetry 97 98 Oxygen Delivery Method Nasal Cannula Room Air Room Air Oxygen Flow Rate 2 FIO2% 02/14/23 20:39 02/14/23 20:40 02/14/23 20:00 Temperature 98.0 F Pulse Rate 93 H Pulse Rate [Left Brachial] 82 Pulse Rate [Right Brachial] Respiratory Rate 20 Blood Pressure Blood Pressure [Left Arm] 169/85 O2 Sat by Pulse Oximetry 96 96 Oxygen Delivery Method Nasal Cannula Room Air Oxygen Flow Rate 1 FIO2% 24 02/15/23 00:00 02/14/23 19:00 02/15/23 04:00 Temperature 98.3 F 97.9 F Pulse Rate Pulse Rate [Left Brachial] 74 68 Pulse Rate [Right Brachial] Respiratory Rate 18 18 Blood Pressure Blood Pressure [Left Arm] 125/62 124/63 O2 Sat by Pulse Oximetry 98 96 Oxygen Delivery Method Room Air Oxygen Flow Rate FIO2% 02/15/23 08:00 02/15/23 07:00 02/15/23 09:02 Temperature 98.1 F Pulse Rate Pulse Rate [Left Brachial] Pulse Rate [Right Brachial] 88 Respiratory Rate 20 Blood Pressure Blood Pressure [Left Arm] 164/74 O2 Sat by Pulse Oximetry 96 Oxygen Delivery Method Nasal Cannula Nasal Cannula Oxygen Flow Rate 2 1 FIO2% 24 02/15/23 09:02 Temperature Pulse Rate 88 Pulse Rate [Left Brachial] Pulse Rate [Right Brachial] Respiratory Rate Blood Pressure Blood Pressure [Left Arm] O2 Sat by Pulse Oximetry 96 Oxygen Delivery Method Oxygen Flow Rate FIO2% Labs: Laboratory Last Values WBC 5.8 X10^3/uL (3.6-10.0) 02/15/23 05:30 RBC 4.44 X10^6/uL (4.7-6.0) L 02/15/23 05:30 Hgb 11.8 g/dL (13.5-18.0) L 02/15/23 05:30 Hct 36.9 % (42.0-54.0) L 02/15/23 05:30 MCV 83.2 fL (80.0-100.0) 02/15/23 05:30 MCH 26.5 pg (27.0-34.0) L 02/15/23 05:30 MCHC 31.8 g/dL (33.0-35.0) L 02/15/23 05:30 RDW 17.1 % (11.6-16.5) H 02/15/23 05:30 Plt Count 224 X10^3/uL (150.0-450.0) 02/15/23 05:30 MPV 8.5 fL (7.4-11.0) 02/15/23 05:30 Neut % (Auto) 59.6 % (42.0-75.0) 02/15/23 05:30 Lymph % (Auto) 22.2 % (21.0-51.0) 02/15/23 05:30 [place] % (Auto) 11.6 % (0.0-13.0) 02/15/23 05:30 Eos % (Auto) 5.5 % (0.9-2.9) H 02/15/23 05:30 Baso % (Auto) 1.1 % (0.2-1.0) H 02/15/23 05:30 Neut # (Auto) 3.5 x10^3/uL (2.2-4.8) 02/15/23 05:30 Lymph # (Auto) 1.3 X10^3/uL (1.3-2.9) 02/15/23 05:30 [place] # (Auto) 0.7 x10^3/uL (0.3-0.8) 02/15/23 05:30 Eos # (Auto) 0.3 x10^3/uL (0.0-0.2) H 02/15/23 05:30 Baso # (Auto) 0.1 X10^3/uL (0.0-0.1) 02/15/23 05:30 Absolute Nucleated RBC 0.1 /100WBC 02/15/23 05:30 Sodium 141 mmol/L (136-145) 02/15/23 05:30 Corrected Sodium TNP 02/15/23 05:30 Potassium 4.3 mmol/L (3.5-5.1) 02/15/23 05:30 Chloride 103 mmol/L (98-107) 02/15/23 05:30 Carbon Dioxide 34.3 mmol/L (21-32) H 02/15/23 05:30 BUN 15 mg/dL (7-18) 02/15/23 05:30 Creatinine 0.78 mg/dL (0.70-1.30) 02/15/23 05:30 Est GFR (MDRD) Af Amer > 60 (>60) 02/15/23 05:30 Est GFR (MDRD) Non-Af > 60 (>60) 02/15/23 05:30 Glucose 102 mg/dL (65-99) H 02/15/23 05:30 Calcium 8.9 mg/dL (8.5-10.1) 02/15/23 05:30 Corrected Calcium 9.6 mg/dL (8.5-10.1) 02/15/23 05:30 Magnesium 1.7 mg/dL (2.0-2.9) L 02/15/23 05:30 Total Bilirubin 0.30 mg/dL (0.2-1.0) 02/15/23 05:30 AST 20 Units/L (15-37) 02/15/23 05:30 ALT 9 Units/L (12-78) L 02/15/23 05:30 Alkaline Phosphatase 40 Units/L (46-116) L 02/15/23 05:30 Troponin I High Sens 26.4 ng/L (4.0-60.0) 02/12/23 15:50 B-Natriuretic Peptide 788 pg/mL (0-79) H* 02/12/23 15:50 Total Protein 7.3 g/dL (6.4-8.2) 02/15/23 05:30 Albumin 3.1 g/dL (3.4-5.0) L 02/15/23 05:30 Globulin 4.2 g/dL (2.5-4.5) 02/15/23 05:30 Albumin/Globulin Ratio 0.7 Ratio (1.1-2.1) L 02/15/23 05:30 Specimen Type Clean catch urine 02/12/23 15:53 Urine Color Yellow (YELLOW) 02/12/23 15:53 Urine Appearance Clear (CLEAR) 02/12/23 15:53 Urine pH 7.0 (5.0 - 8.0) 02/12/23 15:53 Ur Specific [place] 1.010 (1.000-1.030) 02/12/23 15:53 Urine Protein Negative (NEGATIVE) 02/12/23 15:53 Urine Glucose (UA) Negative (NEGATIVE) 02/12/23 15:53 Urine Ketones Negative (NEGATIVE) 02/12/23 15:53 Urine Blood Negative (NEGATIVE) 02/12/23 15:53 Urine Nitrite Negative (NEGATIVE) 02/12/23 15:53 Urine Bilirubin Negative (NEGATIVE) 02/12/23 15:53 Urine Urobilinogen Normal (NORMAL) 02/12/23 15:53 Ur Leukocyte Esterase Negative (NEGATIVE) 02/12/23 15:53 SARS-CoV-2 (PCR) Negative (NEGATIVE) 02/12/23 15:53 Influenza Type A (PCR) Negative (NEGATIVE) 02/12/23 15:53 Influenza Type B (PCR) Negative (NEGATIVE) 02/12/23 15:53 RSV (PCR) Negative (NEGATIVE) 02/12/23 15:53 Reason For Visit: DIVERTICULITIS Discharge Diagnosis All Active Problems (Updated 02/14/23 @ 13:45 by Andrea Serra) Abdominal pain determined by examination (Acute) Acute diverticulitis (Acute) COPD (chronic obstructive pulmonary disease) (Chronic) CAD (coronary artery disease) (Chronic) HTN (hypertension) (Chronic) Pleural effusion (Acute) CHF (congestive heart failure) (Chronic) Edema (Acute) SOB (shortness of breath) (Acute) Discharge Medications Discharge Medications: Sulfa (Sulfonamide Antibiotics) [SULFA] Allergy (Verified 08/05/22 17:01) CONTINUE taking the following medications carvedilol 6.25 mg tablet (Coreg) 6.25 mg PO BID 02/14/23 [History] citalopram 20 mg tablet 20 mg PO QDAY 02/14/23 [History] docusate sodium 100 mg capsule 100 mg PO DAILY 02/14/23 [History] fluticasone fur. 100 mcg-umeclid 62.5 mcg-vilant 25 mcg inhalat.powder (Trelegy Ellipta) See Rx Instructions .Route .COMPLEX 02/14/23 [History] furosemide 80 mg tablet (Lasix) 80 mg PO BID 02/14/23 [History] metformin 500 mg tablet 500 mg PO BID 02/14/23 [History] nitroglycerin 0.2 mg/hr transdermal 24 hour patch 1 patch transdermal Q24H 02/14/23 [History] New Prescriptions ciprofloxacin HCl 500 mg tablet 500 mg PO BID 5 days #10 tabs 02/15/23 [Rx] metronidazole 500 mg tablet 500 mg PO TID 5 days #15 tabs 02/15/23 [Rx] Discharge Disposition Assessment: Stable Discharged home Discharge Plan Discharge Plan Hospital Course: Mr. Mills is a 67-year-old male with a past medical history of COPD, CAD, CHF, hypertension, atrial fibrillation and CABG presented with right lower quadrant abdominal pain that has been going on for 2 weeks. He describes the pain as being intermittent and sharp. Denied nausea, vomiting, fever or chills. He has not had a bowel movement in several days. In the ER abdominal CT showed acute sigmoid diverticulitis mild, without abscess or free air. Chest x-ray was negative. COVID, flu and RSV were all negative. Patient was admitted for further management. Dr. Estrada with general surgery was also consulted and recommended IV antibiotics. Patient's labs were monitored daily and electrolytes were replaced as needed. He was started on IV Flagyl and Cipro. His home medications were restarted. He was also given antiemetics as needed. His diet was advanced as tolerated. He was feeling better and able to ambulate in the room. He was stable for discharge. He was discharged on p.o. antibiotics. He will need to follow-up with PCP and GI for colonoscopy as outpatient. Patient Disposition: 01 HOME, SELF-CARE Condition: Stable Health Concerns: Post Hospitalization: new medications and changes needed to prevent readmission or further decline. Pt educated and given instructions on all concerns. Assessment: Stable Discharged home Prescription drug monitoring program results: PDMP reviewed and no concerns identified Prescriptions: New ciprofloxacin HCl 500 mg tablet 500 mg PO BID 5 Days Qty: 10 0RF metronidazole 500 mg tablet 500 mg PO TID 5 Days Qty: 15 0RF Continued carvedilol [Coreg] 6.25 mg Tablet 6.25 mg PO BID nitroglycerin 0.2 mg/hr Patch 24 Hour 1 patch TRANSDERMAL Q24H Rx Instructions: allow nitrate-free interval of approx. 10-12 hrs per 24-hour period metformin 500 mg Tablet 500 mg PO BID citalopram 20 mg Tablet 20 mg PO QDAY furosemide [Lasix] 80 mg Tablet 80 mg PO BID docusate sodium 100 mg Capsule 100 mg PO DAILY Trelegy Ellipta 100-62.5-25 mcg Blister With Device See Rx Instructions .ROUTE .COMPLEX Rx Instructions: 1 inhalation daily for SOB lisinopril-hydrochlorothiazide 20-12.5 mg tablet 1 tab PO QDAY simvastatin 40 mg tablet 1 tab PO QPM esomeprazole magnesium 40 mg capsule,delayed release(DR/EC) 1 cap PO BID fenofibrate 160 mg tablet 1 tab PO QDAY aspirin 81 mg Capsule 81 mg PO QDAY potassium chloride 10 mEq Capsule, Extended Release 20 meq PO QDAY Qty: 30 1RF Follow ups/Referrals Follow ups/Referrals: Jeffrey Howell [Primary Care Provider] - 3 days (Patient needs GI referral. ) Instructions Stand Alone Forms: Excuse From Work or School, Post Hospital Follow Up Care
== END 2023-02-15 12:00 | disposition home or self-care (01) | DRG 392 ==
LOC: ER 15:34 → MED/SURG 18:13
PROVIDERS: ADMIT Internal Medicine; ATTEND Internal Medicine
DX: R06.02 Shortness of breath; I48.91 Unspecified atrial fibrillation; I50.9 Heart failure, unspecified; K42.9 Umbilical hernia without obstruction or gangrene; J44.9 Chronic obstructive pulmonary disease, unspecified; K57.32 Diverticulitis of large intestine without perforation or abscess without bleeding; J90 Pleural effusion, not elsewhere classified; I25.10 Atherosclerotic heart disease of native coronary artery without angina pectoris; R10.84 Generalized abdominal pain; R60.0 Localized edema; I11.0 Hypertensive heart disease with heart failure

== ENCOUNTER 2024-01-27 07:37 | Observation (INO) ==
[2024-01-27] MEDS: NOZIN NASAL SANITIZER TP ONE (07:51)
[2024-01-27] MEDS: NS 1,000 ML IV 1,000 ML ONE (07:55)
[2024-01-27] MEDS: ANCEF VIAL 1 GRAM ONE (14:06)
[2024-01-27] MEDS: XYLOCAINE 2 % (PLAIN) ONE (14:06)
[2024-01-27] MEDS: ZOFRAN INJ 4 MG VIAL ONE (14:06)
[2024-01-27] MEDS: VERSED ONE (14:06)
[2024-01-27] MEDS: OFIRMEV IV 1000 MG VIAL 1,000 MG/100 ML VIAL IV ONE (14:06)
[2024-01-27] MEDS: DIPRIVAN VIAL 20 ML ONE ×4 (14:06→15:31)
[2024-01-27] MEDS: FENTANYL VIAL INJ 100 mcg ONE ×2 (14:06→14:59)
[2024-01-27] MEDS ORDERED: XYLOCAINE 2 % (PLAIN) ONE (14:06)
[2024-01-27] MEDS ORDERED: SUPRANE ONE (14:06)
[2024-01-27] MEDS ORDERED: PRECEDEX INJ VIAL ONE (14:06)
[2024-01-27] MEDS: NS 100 ML IV 100 ML ONE (14:06)
[2024-01-27] MEDS ORDERED: BENADRYL INJ 50 MG VIAL ONE (14:06)
[2024-01-27] MEDS ORDERED: ULTANE GAS IN ONE (14:06)
[2024-01-27] MEDS: PEPCID 20 MG VIAL ONE (14:06)
[2024-01-27] MEDS: DECADRON INJ ONE ×2 (14:25→17:12)
[2024-01-27] MEDS: VISIPAQUE 100 ML ONE (14:38)
[2024-01-27] MEDS: MARCAINE 0.5% ONE ×2 (14:38→15:19)
[2024-01-27] MEDS: HEPARIN SODIUM IN D5W 75,000 UNITS/1,500 ML BAG ONE (14:38)
[2024-01-27] MEDS: ROBINUL ONE (14:39)
[2024-01-27] MEDS: EPHEDRINE SULFATE INJ ONE (14:44)
[2024-01-27] MEDS: HEPARIN SODIUM INJ 5000 UNITS ONE ×3 (14:49→16:42)
[2024-01-27] MEDS ORDERED: BENADRYL INJ 50 MG VIAL IVP PRN (17:15)
[2024-01-27] MEDS ORDERED: ZOFRAN INJ 4 MG VIAL IVP PRN (17:15)
[2024-01-27] MEDS ORDERED: DILAUDID INJ IVP PRN (17:15)
[2024-01-27] MEDS ORDERED: REGLAN INJ 10 MG VIAL IVP PRN (17:15)
[2024-01-27] MEDS ORDERED: BARHEMSYS INJ IVP PRN (17:15)
[2024-01-27] MEDS ORDERED: DUONEB 0.5 MG/3 MG (3 mL) NEB ONE (17:20)
[2024-01-27 19:52] VITALS: BMI 43.0
[2024-01-27] MEDS ORDERED: PROVENTIL NEB TX 0.083% 2.5MG/ 3ML ONE (20:22)
[2024-01-27] MEDS: PROVENTIL NEB TX 0.083% 2.5MG/ 3ML NEB PRN (20:26)
[2024-01-27] MEDS: ZOCOR TAB 40 MG PO SCH (20:44)
[2024-01-27] MEDS: XARELTO PO SCH (20:44)
[2024-01-27] MEDS: LR 1,000 ML IV 1,000 ML IV SCH (20:44)
--- NOTE | 2024-01-27 21:06 | OR.IMMED ---
IMMEDIATE POST-OP NOTE Immediate Post-Op Note Date of surgery/procedure: 01/27/24 Pre-Op Diagnosis: critical ischemia right leg Post-Op Diagnosis: same Procedure: aortogram, arteriogram right leg , right femoral endarterectomy and patch angioplasty, stenting of entire occluded right superficila femoral artery and severe disease , near total occlusion of the right common femoral artery Description of Procedure: dictated Surgeon/Marketing Business Analyst: Kashif Findings: severe disease right common femoral artery, complete total occlusion of the right superficial femoral artery beginning at it's takeoff and reconstitution of the right popliteal artery just above the knee. Patent posteriot tibial artery and peronea lartery to the ankle , occlusion of mid portion of right anterior tibial artery with reconstitution distally Estimated Blood Loss: 400 cc Complications: none Progress Notes: to CCU, leave Leslie in place , begin diet, hopefully discharge in AM, Will need similar hybrid procedure of the left leg.
[2024-01-28] MEDS: PERCOCET TAB 5/325 MG PO PRN (03:13)
[2024-01-28 05:09] LABS: MEAN PLATELET VOLUME 8.8 fL (7.4-11.0)
[2024-01-28 05:10] LABS: BLOOD UREA NITROGEN 25 mg/dL (7-18); CALCIUM 8.5 mg/dL (8.5-10.1); CARBON DIOXIDE 28.8 mmol/L (21-32); CHLORIDE 105 mmol/L (98-107); COR NA(FOR HYPERGLY) 140 mmol/L (136-145); CREATININE 1.13 mg/dL (0.70-1.30); GLUCOSE 156 mg/dL (65-99); POTASSIUM 4.5 mmol/L (3.5-5.1); SODIUM 139 mmol/L (136-145); eGFR NON BLACK RACES > 60 (>60)
[2024-01-28 05:13] LABS: BASOPHILS % (AUTO) 0.1 % (0.2-1.0); HEMATOCRIT 30.2 % (42.0-54.0); HEMOGLOBIN 9.6 g/dL (13.5-18.0); LYMPHOCYTES # (AUTO) 0.7 X10^3/uL (1.3-2.9); LYMPHOCYTES % (AUTO) 6.6 % (21.0-51.0); MEAN CORPUSCULAR HEMOGLOBIN 28.1 pg (27.0-34.0); MEAN CORPUSCULAR VOLUME 87.8 fL (80.0-100.0); MONOCYTES # (AUTO) 0.8 x10^3/uL (0.3-0.8); MONOCYTES % (AUTO) 7.5 % (0.0-13.0); NEUTROPHILS # (AUTO) 9.5 x10^3/uL (2.2-4.8); NEUTROPHILS % (AUTO) 85.8 % (42.0-75.0); PLATELET COUNT 375 X10^3/uL (150.0-450.0); RED BLOOD COUNT 3.44 X10^6/uL (4.7-6.0); RED CELL DISTRIBUTION WIDTH 17.9 % (11.6-16.5); WHITE BLOOD COUNT 11.1 X10^3/uL (3.6-10.0)
[2024-01-28 08:03] VITALS: TEMP 98.3
[2024-01-28] MEDS: ASPIRIN EC 81 MG PO SCH (08:27)
[2024-01-28] MEDS: TRICOR TAB 160 MG PO SCH (08:31)
[2024-01-28] MEDS: CELEXA PO SCH (08:32)
[2024-01-28 09:19] VITALS: BP 149/66; PULSE 66; RESP 18; O2SAT 93
--- NOTE | 2024-01-28 11:36 | W.DIS.FURT ---
Summary of Discharge Discharge Summary of Date Date of Exam: 01/28/24 Admission Date Date of Admission: 01/27/24 Admission Diagnosis Hospital Course: 68-year-old male with significant peripheral vascular disease who had undergone bilateral common iliac artery stenting several weeks ago. 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 Yesterday he underwent a hybrid procedure with right common femoral endarterectomy and Patch angioplasty and stenting of the completely occluded right superficial femoral artery via approach from the right posterior tibial artery at the ankle. He has done well post op.He has no complaints. His right foot is warm and he has excellent doppler signal in the posterior tibial artery on that side. Hemoglobin post-op is 9.6 grams. He will be discharged today on his usual medications including Xarelto and aspirin. He also will be given prescription for Percocet, 5 milligram tablets 1 every 6 hours per pain. He will follow up with me in 1 to 2 weeks. He will need similar hybrid procedure done on the left side as well in the future Vital Signs: Vital Signs (72 hours) 01/27/24 08:01 01/27/24 08:01 01/27/24 17:54 Temperature 98.0 F Pulse Rate 58 L 58 L 57 L Respiratory Rate 20 16 Blood Pressure 181/66 93/50 O2 Sat by Pulse Oximetry 95 100 Oxygen Delivery Method Room Air Aerosol Face Tent Oxygen Flow Rate FIO2% 01/27/24 17:59 01/27/24 18:04 01/27/24 18:09 Temperature Pulse Rate 79 79 79 Respiratory Rate 16 16 16 Blood Pressure 102/59 110/53 117/54 O2 Sat by Pulse Oximetry 98 98 98 Oxygen Delivery Method Aerosol Face Tent Aerosol Face Tent Nasal Cannula Oxygen Flow Rate FIO2% 01/27/24 18:14 01/27/24 18:19 01/27/24 18:24 Temperature Pulse Rate 79 75 74 Respiratory Rate 18 18 18 Blood Pressure 123/53 104/52 110/54 O2 Sat by Pulse Oximetry 98 98 98 Oxygen Delivery Method Nasal Cannula Nasal Cannula Nasal Cannula Oxygen Flow Rate FIO2% 01/27/24 19:03 01/27/24 20:26 01/27/24 20:27 Temperature Pulse Rate 71 Respiratory Rate Blood Pressure O2 Sat by Pulse Oximetry 95 Oxygen Delivery Method Nasal Cannula Nasal Cannula Oxygen Flow Rate 2 2 FIO2% 28 01/27/24 20:00 01/27/24 21:04 01/27/24 22:00 Temperature 98.3 F Pulse Rate 73 65 Respiratory Rate 24 17 Blood Pressure 105/53 128/58 140/65 O2 Sat by Pulse Oximetry 94 L 94 L Oxygen Delivery Method Nasal Cannula Oxygen Flow Rate 2 FIO2% 01/27/24 22:00 01/27/24 23:00 01/27/24 23:00 Temperature 98.0 F Pulse Rate 71 74 Respiratory Rate 21 22 Blood Pressure 140/65 131/61 O2 Sat by Pulse Oximetry 95 93 L Oxygen Delivery Method Oxygen Flow Rate FIO2% 01/28/24 00:00 01/28/24 00:00 01/28/24 01:00 Temperature Pulse Rate 69 67 Respiratory Rate 17 16 Blood Pressure 123/58 O2 Sat by Pulse Oximetry 92 L 93 L Oxygen Delivery Method Oxygen Flow Rate FIO2% 01/28/24 01:00 01/28/24 02:00 01/28/24 02:00 Temperature Pulse Rate 66 Respiratory Rate 16 Blood Pressure 136/63 140/61 O2 Sat by Pulse Oximetry 93 L Oxygen Delivery Method Oxygen Flow Rate FIO2% 01/28/24 03:13 01/28/24 02:00 01/28/24 02:00 Temperature Pulse Rate 66 Respiratory Rate 26 H 16 Blood Pressure 140/61 O2 Sat by Pulse Oximetry 93 L Oxygen Delivery Method Oxygen Flow Rate FIO2% 01/28/24 03:00 01/28/24 04:00 01/28/24 04:00 Temperature 97.9 F Pulse Rate 65 Respiratory Rate 19 Blood Pressure 141/65 168/71 O2 Sat by Pulse Oximetry 93 L Oxygen Delivery Method Oxygen Flow Rate FIO2% 01/28/24 04:13 01/28/24 05:00 01/28/24 05:00 Temperature Pulse Rate 74 Respiratory Rate 24 17 Blood Pressure 146/63 O2 Sat by Pulse Oximetry 91 L Oxygen Delivery Method Oxygen Flow Rate FIO2% 01/28/24 06:00 01/28/24 06:00 01/28/24 07:00 Temperature Pulse Rate 74 76 Respiratory Rate 17 30 H Blood Pressure 160/71 O2 Sat by Pulse Oximetry 93 L 95 Oxygen Delivery Method Oxygen Flow Rate FIO2% 01/28/24 07:01 01/28/24 07:01 01/28/24 07:54 Temperature Pulse Rate 76 Respiratory Rate 31 H Blood Pressure 141/94 O2 Sat by Pulse Oximetry 95 Oxygen Delivery Method Nasal Cannula Oxygen Flow Rate 2 FIO2% 01/28/24 08:00 01/28/24 08:00 01/28/24 09:00 Temperature 98.3 F Pulse Rate 69 Respiratory Rate 29 H Blood Pressure 158/72 149/66 O2 Sat by Pulse Oximetry 96 Oxygen Delivery Method Nasal Cannula Oxygen Flow Rate 2 FIO2% 01/28/24 09:00 01/28/24 08:17 Temperature Pulse Rate 66 Respiratory Rate 18 Blood Pressure O2 Sat by Pulse Oximetry 93 L Oxygen Delivery Method Nasal Cannula Oxygen Flow Rate 2 FIO2% 28 Labs: Laboratory Last Values WBC 11.1 X10^3/uL (3.6-10.0) H 01/28/24 04:10 RBC 3.44 X10^6/uL (4.7-6.0) L 01/28/24 04:10 Hgb 9.6 g/dL (13.5-18.0) L 01/28/24 04:10 Hct 30.2 % (42.0-54.0) L 01/28/24 04:10 MCV 87.8 fL (80.0-100.0) 01/28/24 04:10 MCH 28.1 pg (27.0-34.0) 01/28/24 04:10 MCHC 32.0 g/dL (33.0-35.0) L 01/28/24 04:10 RDW 17.9 % (11.6-16.5) H 01/28/24 04:10 Plt Count 375 X10^3/uL (150.0-450.0) 01/28/24 04:10 MPV 8.8 fL (7.4-11.0) 01/28/24 04:10 Neut % (Auto) 85.8 % (42.0-75.0) H 01/28/24 04:10 Lymph % (Auto) 6.6 % (21.0-51.0) L 01/28/24 04:10 [place] % (Auto) 7.5 % (0.0-13.0) 01/28/24 04:10 Eos % (Auto) 0.0 % (0.9-2.9) L 01/28/24 04:10 Baso % (Auto) 0.1 % (0.2-1.0) L 01/28/24 04:10 Neut # (Auto) 9.5 x10^3/uL (2.2-4.8) H 01/28/24 04:10 Lymph # (Auto) 0.7 X10^3/uL (1.3-2.9) L 01/28/24 04:10 [place] # (Auto) 0.8 x10^3/uL (0.3-0.8) 01/28/24 04:10 Eos # (Auto) 0.0 x10^3/uL (0.0-0.2) 01/28/24 04:10 Baso # (Auto) 0.0 X10^3/uL (0.0-0.1) 01/28/24 04:10 Absolute Nucleated RBC 0.1 /100WBC 01/28/24 04:10 Sodium 139 mmol/L (136-145) 01/28/24 04:10 Corrected Sodium 140 mmol/L (136-145) 01/28/24 04:10 Potassium 4.5 mmol/L (3.5-5.1) 01/28/24 04:10 Chloride 105 mmol/L (98-107) 01/28/24 04:10 Carbon Dioxide 28.8 mmol/L (21-32) 01/28/24 04:10 BUN 25 mg/dL (7-18) H 01/28/24 04:10 Creatinine 1.13 mg/dL (0.70-1.30) 01/28/24 04:10 Est GFR (MDRD) Af Amer > 60 (>60) 01/28/24 04:10 Est GFR (MDRD) Non-Af > 60 (>60) 01/28/24 04:10 Glucose 156 mg/dL (65-99) H 01/28/24 04:10 POC Glucose (mg/dL) 108 mg/dL (65-99) H 01/27/24 08:02 Calcium 8.5 mg/dL (8.5-10.1) 01/28/24 04:10 Reason For Visit: CRITICAL ISCHEMIA RIGHT LEG Discharge Diagnosis All Active Problems (Updated 01/17/24 @ 17:54 by Alejandro Rowland) Atherosclerosis of [place] arteries of extremities with rest pain, left leg (Acute) Atherosclerosis of [place] arteries of extremities with rest pain, right leg (Acute) Abdominal pain determined by examination (Acute) Acute diverticulitis (Acute) COPD (chronic obstructive pulmonary disease) (Chronic) CAD (coronary artery disease) (Chronic) HTN (hypertension) (Chronic) Pleural effusion (Acute) CHF (congestive heart failure) (Chronic) Edema (Acute) SOB (shortness of breath) (Acute) Plan of Treatment: Continue with present treatment and follow up plan. Pt is to keep follow up appointment as instructed and take medications as ordered. Discharge Medications Discharge Medications: Sulfa (Sulfonamide Antibiotics) [SULFA] Allergy (Verified 08/05/22 17:01) Discharge Disposition Assessment: see hospital course Discharge Plan Discharge Plan Hospital Course: 68-year-old male with significant peripheral vascular disease who had undergone bilateral common iliac artery stenting several weeks ago. 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 Yesterday he underwent a hybrid procedure with right common femoral endarterectomy and Patch angioplasty and stenting of the completely occluded right superficial femoral artery via approach from the right posterior tibial artery at the ankle. He has done well post op.He has no complaints. His right foot is warm and he has excellent doppler signal in the posterior tibial artery on that side. Hemoglobin post-op is 9.6 grams. He will be discharged today on his usual medications including Xarelto and aspirin. He also will be given prescription for Percocet, 5 milligram tablets 1 every 6 hours per pain. He will follow up with me in 1 to 2 weeks. He will need similar hybrid procedure done on the left side as well in the future Patient Disposition: 01 HOME, SELF-CARE Condition: Stable Health Concerns: Post Hospitalization: new medications and changes needed to prevent readmission or further decline. Pt educated and given instructions on all concerns. Care Plan Goals: Problem: Pain/Alteration in Comfort Goal: Improve/ Resolve Pain; Achieve Pain Tolerance Instructions: Take pain medications as prescribed. Contact your primary care provider if your pain is unrelieved or worsens. Follow up with primary care provider as directed. Plan of Treatment: Continue with present treatment and follow up plan. Pt is to keep follow up appointment as instructed and take medications as ordered. Assessment: see hospital course Prescription drug monitoring program results: PDMP reviewed and no concerns identified Prescriptions: New oxycodone-acetaminophen [Percocet] 5-325 mg tablet 1 tab PO Q6H MDD 4 PRNQty: 30 0RF Continued carvedilol [Coreg] 6.25 mg Tablet 6.25 mg PO BID nitroglycerin 0.2 mg/hr Patch 24 Hour 1 patch TRANSDERMAL Q24H Rx Instructions: allow nitrate-free interval of approx. 10-12 hrs per 24-hour period metformin 500 mg Tablet 500 mg PO BID furosemide [Lasix] 80 mg Tablet 40 mg PO BID docusate sodium 100 mg Capsule 200 mg PO DAILY Trelegy Ellipta 100-62.5-25 mcg Blister With Device See Rx Instructions .ROUTE .COMPLEX Rx Instructions: 1 inhalation daily for SOB lisinopril-hydrochlorothiazide 20-12.5 mg tablet 1 tab PO QDAY simvastatin 40 mg tablet 1 tab PO QPM esomeprazole magnesium 40 mg capsule,delayed release(DR/EC) 1 cap PO BID fenofibrate 160 mg tablet 1 tab PO QDAY aspirin 81 mg Capsule 81 mg PO QDAY Xarelto 2.5 mg Tablet 2.5 mg PO BID Qty: 60 0RF Orders to Discharge Patient Discharge Orders: Discharge (Routine); Ordered 01/28/24 Ordered By: Alejandro Rowland Follow ups/Referrals Follow ups/Referrals: Alejandro Rowland [STAFF PHYSICIAN] - 02/09/24 2:15 pm Instructions Instructions: Endovascular Therapy for Peripheral Vascular Disease, Care After Stand Alone Forms: Excuse From Work or School, Post Hospital Follow Up Care
--- NOTE | 2024-02-02 21:05 | DR.OPNOTE ---
OP NOTE Pre-Op Diagnosis: critical ischemia right leg Post-Op Diagnosis: same Procedure Date Date Of Procedure: 01/27/24 Procedure: PROCEDURE: Diagnostic aortogram , diagnostic arteriogram right lower extremity ,drug eluting stenting of the entire right superficial femoral artery which was completely occluded, right femoral endarterectomy and patch angiopalsty NARRATIVE : The patient was taken to the operative suite and placed in the s upine position. The left groin and entire right leg were prepped and draped in sterile fashion. The patient was given intravenous sedation supervised by myself. Time out for the procedure obtained. We knew we could not pass a wire from above nor could we pass a wire from the right ankle all the way into the aorta sice we had previously failed. We elected to perform a retrograde approach coupled with right femoral endarterectomy and patch angiopalsty Ultrasound used to identify the right posterior tibial artery at the ankle and the skin overlying it infiltrated with 0.5% Marcaine . Ultrasound use to guide puncture of the right posterior tibial artery and a 0.012 inch guide wire placed. A slim sheath placed over the guide wire into the right posterior tibial artery and arteriogram carried out to confirm that we were indeed in the right posterior tibial artery. From below a 0.035 inch [employer] [place] wire and [place] catheter were used to traverse the obstruction all the way to the proximal right superficial femoral artery but we could not get beyond the right common femoral artetry as per the previous procedure . At this point a vertical incision was made in the right groin with a number 15 knife blade dissecting down sharply identifying the grossly diseased right common femoral artery taking the dissection all the way to the distal right external ilaic artery placing a vessel around this. The profunda femoris and surface femoral arteries also dissected free and vessel loops placed around them. The patient was given 5000 units of IV Heparin. The right femoral artery was clamped and opened with a number 11 knife blade and Pott's scissors and the gross disease removed with a [place] dissector. All floating material removed. We could identify the wire in the sub intimal space in the common femoral artery. This was freed up and placed in the common femoral artery lumen. the arteriotomy of the right common femoral artery closed with an 8 millimeter wide x 8 cm long bovine pericardial patch sewing it in position with running 5-0 Prolene suture. All clamps removed and the patient had excellent flow through this part of the artery. From below we pa ssed the 0.035 inch wire and [place] catheter through the endarterectomy site into the common iliac artery, into the aorta. Aortogram carried out showing that we were indeed in the lumen of the aorta .The 0.035 inch wire exchange through the [place] catheter for 0.014 inch wire and we then placed sequentially in the completely occluded right superficial femoral artery a 7 mmx 150 mm Keesha stent , a second 7 mm x 150 Keesha stent end to end and finally a 6 millimeter x120 millimeter Keesha stetn of the distal righjt superficial femoral artery. All these were balloon dilated with a 6 millimeter [place] balloon. Arteriogram carried out from the aorta showing good flow throughout the entire right leg all the way to the ankle however there was some stenosis at the proximal part of the patch. This was then stented with a 7 millimetre by 40 millimetre Keesha drug-coated stent and balloon dilated with a 7 millimeter balloon. Repeat arteriogram showed excellent result with good flow all the way to the ankle. Placement of the wire into the aorta from the ankle was selective catheterization .Wires and devices removed from the right ankle sheath and then the right groin closed with 2 layers of running 3-0 Vicryl and the skin closed with skin blu . The sheath in the right ankle removed and hemostasis performed with a tibial band .Hemostatic dressing placed over the right groin incision and the patient taken to PACU in good condition and later to the CCU . Type of Anesthesia: Local (0.5% Marcaine ) Anesthesia Comment: plus MAC Findings: severe stenosis ,near total occlusion of the right common femoral artery, complete long segment occlusion of the right superficial femoral artery, patent right popiteal artery and right peroneal and posterior tibial arteries with oclusion of the mid portion of the right anterior tibial artery with reconstitution distally. Type of Fluids Used:: Lactated Ringers Total Amount of Fluid Infused:: 1900 cc Urine output: 150 cc EBL: 400 cc Hardware: KEESHA 7MMX 150 MM STENT, KEESHA 7MMX 150 MM STENT , KEESHA 6 MMX 120 MM STENT, KEESHA 7MMX 40 MM , ALL PLACED IN THE COMPLETELY OCCLUDED RIGHT SUPERFICIAL FEMORAL ARTERY Complications:: NONE Needle/Sponge Count:: CORRECT Disposition/Condition: Pt. tolerated procedure without difficulty. TAKEN to PACU in stable condition.
[2024-02-04] MEDS ORDERED: NovoLIN R (or HumuLIN R) SUBCUT PRN (13:47)
[2024-02-04] MEDS ORDERED: LR 1,000 ML IV 1,000 ML IV SCH (14:00)
[2024-02-04] MEDS ORDERED: SNACK - Diabetic Appropriate PO SCH (20:00)
[2024-02-04] MEDS ORDERED: XARELTO PO SCH (21:00)
[2024-02-04] MEDS ORDERED: ZOCOR TAB 40 MG PO SCH (21:00)
[2024-02-05] MEDS ORDERED: CELEXA PO SCH (09:00)
[2024-02-05] MEDS ORDERED: ZESTRIL TAB 10 MG PO SCH (09:00)
[2024-02-05] MEDS ORDERED: ASPIRIN EC 81 MG PO SCH (09:00)
[2024-02-05] MEDS ORDERED: TRICOR TAB 145 MG PO SCH (09:00)
== END 2024-01-28 10:35 | disposition home or self-care (01) ==
LOC: SURG1 07:37 → INTOOBSV 17:56 → ICU 17:56
PROVIDERS: ADMIT Surgery; ATTEND Surgery
DX: Z72.0 Tobacco use; I87.2 Venous insufficiency (chronic) (peripheral); I70.223 Atherosclerosis of native arteries of extremities with rest pain, bilateral legs; J44.9 Chronic obstructive pulmonary disease, unspecified

== ENCOUNTER 2024-02-04 13:23 | Inpatient (IN) ==
[2024-02-04] MEDS ORDERED: NovoLIN R (or HumuLIN R) SUBCUT PRN (15:34)
[2024-02-04 16:09] LABS: BASOPHILS # (AUTO) 0.1 X10^3/uL (0.0-0.1); BASOPHILS % (AUTO) 1.5 % (0.2-1.0); EOSINOPHILS # (AUTO) 0.4 x10^3/uL (0.0-0.2); EOSINOPHILS % (AUTO) 4.2 % (0.9-2.9); HEMATOCRIT 29.6 % (42.0-54.0); HEMOGLOBIN 9.6 g/dL (13.5-18.0); LYMPHOCYTES # (AUTO) 1.7 X10^3/uL (1.3-2.9); LYMPHOCYTES % (AUTO) 19.3 % (21.0-51.0); MEAN CORPUSCULAR HEMOGLOBIN 27.9 pg (27.0-34.0); MEAN CORPUSCULAR HGB CONC 32.3 g/dL (33.0-35.0); MEAN CORPUSCULAR VOLUME 86.3 fL (80.0-100.0); MEAN PLATELET VOLUME 7.9 fL (7.4-11.0); MONOCYTES # (AUTO) 0.8 x10^3/uL (0.3-0.8); MONOCYTES % (AUTO) 8.8 % (0.0-13.0); NEUTROPHILS # (AUTO) 5.9 x10^3/uL (2.2-4.8); NEUTROPHILS % (AUTO) 66.2 % (42.0-75.0); PLATELET COUNT 328 X10^3/uL (150.0-450.0); RED BLOOD COUNT 3.43 X10^6/uL (4.7-6.0); RED CELL DISTRIBUTION WIDTH 17.2 % (11.6-16.5)
[2024-02-04 16:12] LABS: BLOOD UREA NITROGEN 21 mg/dL (7-18); CALCIUM 8.8 mg/dL (8.5-10.1); CARBON DIOXIDE 28.2 mmol/L (21-32); CHLORIDE 106 mmol/L (98-107); COR NA(FOR HYPERGLY) 141 mmol/L (136-145); CREATININE 1.09 mg/dL (0.70-1.30); GLUCOSE 128 mg/dL (65-99); SODIUM 140 mmol/L (136-145); eGFR NON BLACK RACES > 60 (>60)
[2024-02-04 16:14] LABS: POTASSIUM 4.2 mmol/L (3.5-5.1)
[2024-02-04] MEDS: LR 1,000 ML IV 1,000 ML IV SCH (16:50)
[2024-02-04] MEDS: ZOSYN VIAL 3.375 GRAMS 3.375 G in NS 100 ML IV 100 ML IV SCH (16:50)
[2024-02-04 17:57] VITALS: BMI 42.9
[2024-02-04] MEDS: SNACK - Diabetic Appropriate PO SCH (20:00)
[2024-02-04] MEDS: PROVENTIL NEB TX 0.083% 2.5MG/ 3ML NEB PRN (20:12)
[2024-02-04] MEDS: PULMICORT NEB TX 0.5 MG NEB SCH (20:12)
[2024-02-04] MEDS: ZOCOR TAB 40 MG PO SCH (21:02)
[2024-02-04] MEDS: XARELTO PO SCH (21:02)
[2024-02-05] MEDS: ASPIRIN EC 81 MG PO SCH (09:56)
[2024-02-05] MEDS: ZESTRIL TAB 10 MG PO SCH (09:56)
[2024-02-05] MEDS: CELEXA PO SCH (09:56)
[2024-02-05] MEDS: TRICOR TAB 145 MG PO SCH (09:56)
[2024-02-05] MEDS: NITRODUR PATCH 0.2 MG/HR TD SCH (13:38)
[2024-02-05] MEDS: NICOTINE PATCH TD SCH (13:38)
[2024-02-05] MEDS: ATIVAN TAB 1 MG PO PRN (16:58)
[2024-02-05] MEDS: MIRALAX POWDER (1 DOSE 17 G) PO SCH (21:21)
--- NOTE | 2024-02-06 13:56 | NOTE.SOAP ---
Soap Note Note for Day of Date of Exam: 02/05/24 Subjective Data Subjective Data: Patient post right femoral endarterectomy and patch angioplasty of the right leg and hybrid approach stenting of the occluded right superficial femoral artery about 1 week ago. Had developed significant seroma of the right groin with drainage. No fever . WBC not elevated . Objective Data Temperature: 98.5 F Pulse Rate: 69 Respiratory Rate: 18 Blood Pressure: 184/71 Objective Data: No change, Casie removed and large seroma drained right groin and wound vacuum placed, Assessment Assessment: Post op seroma right groin, patient had extensive dissection due to his significant obesity Plan Plan: Set up home health to periodically change wound vacuum.
--- NOTE | 2024-02-06 14:18 | DR.H&P ---
H&P History & Physical for Day of: H&P Date: 02/04/24 Chief Complaint Chief Complaint: Serous drainage from right groin incision History of Present Illness History of Present Illness: This is a 68 year old male with significant peripheral vascular disease who one week ago underwent a hybrid procedure with right femoral endarterectomy and Patch angioplasty and stenting of the entirely occluded right superficial femoral artery. This was a difficult case due to his significant morBID obesity and inflammation around the femoral artery. He presents to the office with significant serouns drainage from the right groin and is admitted for care of this seroma Past Medical History Past Medical History: CHF, COPD, Coronary Artery Disease, Diabetes, Dyslipidemia and Hypertension Additional Medical History: A-FIB Past Surgical History Surgical History: Angioplasty/Stents and CABG/Valve Surgery (CABG) Family History Family Medical History: Cancer and Coronary Artery Disease Social History Does patient currently use any type of tobacco product: No Have you used tobacco products in the last 12 months: Yes Type of Tobacco Use: Cigarettes Packs per day or dips/chews per day: ONE Alcohol Use: None Medications Home Medications: Home Medications Medication Instructions Recorded Confirmed Type aspirin 81 mg capsule 81 mg PO QDAY 08/05/22 02/04/24 History esomeprazole magnesium 40 mg 1 cap PO BID 08/05/22 02/04/24 History capsule,delayed release fenofibrate 160 mg tablet 1 tab PO QDAY 08/05/22 02/04/24 History lisinopril 20 1 tab PO QDAY 08/05/22 02/04/24 History mg-hydrochlorothiazide 12.5 mg tablet simvastatin 40 mg tablet 1 tab PO QPM cholesterol 08/05/22 02/04/24 History carvedilol 6.25 mg tablet (Coreg) 6.25 mg PO BID 02/14/23 02/04/24 History docusate sodium 100 mg capsule 200 mg PO DAILY 02/14/23 02/04/24 History fluticasone fur. 100 mcg-umeclid See Rx Instructions .Route .COMPLEX 02/14/23 02/04/24 History 62.5 mcg-vilant 25 mcg inhalat.powder (Trelegy Ellipta) furosemide 80 mg tablet (Lasix) 40 mg PO BID 02/14/23 02/04/24 History metformin 500 mg tablet 500 mg PO BID 02/14/23 02/04/24 History nitroglycerin 0.2 mg/hr 1 patch transdermal Q24H 02/14/23 02/04/24 History transdermal 24 hour patch citalopram 40 mg tablet 40 mg PO QDAY 02/04/24 02/04/24 History nicotine 14 mg/24 hr daily 14 mg transdermal DAILY 02/04/24 02/04/24 History transdermal patch Allergies Allergies Allergy/AdvReac Type Severity Reaction Status Date / Time Sulfa (Sulfonamide Allergy Verified 08/05/22 17:01 Antibiotics) [SULFA] Labs 02/04/24 15:55 02/04/24 15:55 Labs: Laboratory WBC 9.0 X10^3/uL (3.6-10.0) 02/04/24 15:55 RBC 3.43 X10^6/uL (4.7-6.0) L 02/04/24 15:55 Hgb 9.6 g/dL (13.5-18.0) L 02/04/24 15:55 Hct 29.6 % (42.0-54.0) L 02/04/24 15:55 MCV 86.3 fL (80.0-100.0) 02/04/24 15:55 MCH 27.9 pg (27.0-34.0) 02/04/24 15:55 MCHC 32.3 g/dL (33.0-35.0) L 02/04/24 15:55 RDW 17.2 % (11.6-16.5) H 02/04/24 15:55 Plt Count 328 X10^3/uL (150.0-450.0) 02/04/24 15:55 MPV 7.9 fL (7.4-11.0) 02/04/24 15:55 Neut % (Auto) 66.2 % (42.0-75.0) 02/04/24 15:55 Lymph % (Auto) 19.3 % (21.0-51.0) L 02/04/24 15:55 [place] % (Auto) 8.8 % (0.0-13.0) 02/04/24 15:55 Eos % (Auto) 4.2 % (0.9-2.9) H 02/04/24 15:55 Baso % (Auto) 1.5 % (0.2-1.0) H 02/04/24 15:55 Neut # (Auto) 5.9 x10^3/uL (2.2-4.8) H 02/04/24 15:55 Lymph # (Auto) 1.7 X10^3/uL (1.3-2.9) 02/04/24 15:55 [place] # (Auto) 0.8 x10^3/uL (0.3-0.8) 02/04/24 15:55 Eos # (Auto) 0.4 x10^3/uL (0.0-0.2) H 02/04/24 15:55 Baso # (Auto) 0.1 X10^3/uL (0.0-0.1) 02/04/24 15:55 Absolute Nucleated RBC 0.1 /100WBC 02/04/24 15:55 Sodium 140 mmol/L (136-145) 02/04/24 15:55 Corrected Sodium 141 mmol/L (136-145) 02/04/24 15:55 Potassium 4.2 mmol/L (3.5-5.1) 02/04/24 15:55 Chloride 106 mmol/L (98-107) 02/04/24 15:55 Carbon Dioxide 28.2 mmol/L (21-32) 02/04/24 15:55 BUN 21 mg/dL (7-18) H 02/04/24 15:55 Creatinine 1.09 mg/dL (0.70-1.30) 02/04/24 15:55 Est GFR (MDRD) Af Amer > 60 (>60) 02/04/24 15:55 Est GFR (MDRD) Non-Af > 60 (>60) 02/04/24 15:55 Glucose 128 mg/dL (65-99) H 02/04/24 15:55 POC Glucose (mg/dL) 105 mg/dL (65-99) H 02/06/24 12:31 Calcium 8.8 mg/dL (8.5-10.1) 02/04/24 15:55 Review of Systems Eyes: No Symptoms Reported ENT: No Symptoms Reported Respiratory: No Symptoms Reported Cardiovascular: No Symptoms Reported Gastrointestinal: No Symptoms Reported Genitourinary: No Symptoms Reported Musculoskeletal: No Symptoms Reported Skin: See HPI Neurological: No Symptoms Reported Physical Exam Vital Signs: Vital Signs Temperature 98.5 F Temperature 98.0 F Pulse Rate [Bilateral Radial] 65 Pulse Rate [Bilateral Radial] 59 Pulse Rate [Bilateral Radial] 58 Pulse Rate 69 Pulse Rate 60 Respiratory Rate 18 Respiratory Rate 20 Respiratory Rate 21 Respiratory Rate 22 Blood Pressure [Left Arm] 156/66 Blood Pressure [Left Arm] 181/76 Blood Pressure [Left Arm] 188/79 Blood Pressure [Left Arm] 189/77 Blood Pressure 184/71 O2 Sat by Pulse Oximetry 98 O2 Sat by Pulse Oximetry 96 Oriented: Normal, Time, Person and Place Eyes: Normal Ear: Normal Nose: Normal Throat: Normal Respiratory: Clear Throughout Cardiovascular: Normal : Normal Auscultation: Bowel Sounds: Normal Palpation: Normal Tenderness: Normal Skin: Other (incision right groin without redness and palpable seroma with drainage around the blu ) Musculoskeletal: Normal Psychiatric: Normal Mood Description: Calm Affect: Normal Speech Pattern: Clear and Appropriate Assessment/Plan (1) Atherosclerosis of [place] arteries of extremities with rest pain, left leg: Status: Acute Plan: Doig well (2) Atherosclerosis of [place] arteries of extremities with rest pain, right leg: Status: Acute Plan: doing well but has post -op seroma right groin (3) COPD (chronic obstructive pulmonary disease): Qualifiers: COPD type: unspecified COPD Qualified Code(s): J44.9 - Chronic obstructive pulmonary disease, unspecified Status: Chronic Plan: stable, home meds (4) CAD (coronary artery disease): Qualifiers: Coronary Disease-Associated Artery/Lesion type: bypass graft [place] vs. transplanted heart: [place] heart Status: Chronic Plan: stable , home meds (5) HTN (hypertension): Qualifiers: Hypertension type: primary hypertension Qualified Code(s): I10 - Essential (primary) hypertension Status: Chronic Plan: home meds (6) CHF (congestive heart failure): Qualifiers: Heart failure chronicity: chronic Heart failure type: unspecified Qualified Code(s): I50.9 - Heart failure, unspecified Status: Chronic Plan: stable, home meds (7) Postoperative seroma of skin after non-dermatologic procedure: Status: Acute Plan: wound opened , large seroma drained and wound vacuum placed right groin wound
--- NOTE | 2024-02-06 14:31 | DR.OPNOTE ---
OP NOTE Pre-Op Diagnosis: large seroma right groin post -op Post-Op Diagnosis: same Procedure Date Date Of Procedure: 02/05/24 Procedure: PROCEDURE : Drainage of seroma right groin and placement of wound vacuum NARRTIVE: The patient had been admitted to the critical care unit. Tright groin wound was prepped and 4 [place] along the inferior aspect of the incision removed and gross seroma drained. There was significant drainage. No active bleeding. Once this was done, black foam was placed in the wound and covered with adhesive sheet. Incision made over the adhesive over the foam and the circular tract pad placed to this and it placed to suction at 150 mm of Hg on a continuous basis. The patient tolerated this well. Type of Anesthesia: Local Findings: large seroma drained from the right groin ,no active bleeding Type of Fluids Used:: Normal Saline Total Amount of Fluid Infused:: 100cc EBL: none Complications:: none Disposition/Condition: Pt. tolerated procedure without difficulty at the bedside in the CCU
--- NOTE | 2024-02-06 14:52 | NOTE.SOAP ---
Soap Note Note for Day of Date of Exam: 02/06/24 Subjective Data Subjective Data: Patient stable.Wound vacuum is working well, about 200 cc drainage out last 24 hours . Home Health has been contacted about caring for wound vacuum at home Objective Data Temperature: 98.8 F Pulse Rate: 69 Respiratory Rate: 18 Blood Pressure: 184/71 O2 Sat by Pulse Oximetry: 98 Objective Data: Wound vacuum did have leak , but nurses applied more adhesive sheeting and leak resolved. Drainage as noted above . Assessment Assessment: s/p right femoral endarterectomy with large post op seroma right groin which has been drained and wound vacuum applied. Plan Plan: continue wound vacuum . If wound vacuum approved tomorrow will discharge home .
[2024-02-06] MEDS: NS 250 ML IV 250 ML IV ONE (15:44)
[2024-02-06] MEDS: D5 1/2 NS 1,000 ML 1,000 ML IV ONE (16:28)
--- NOTE | 2024-02-06 18:12 | EKG ---
Test Reason : BP 198/64 Blood Pressure : */* mmHG Vent. Rate : 61 BPM Atrial Rate : 61 BPM P-R Int : 218 ms QRS Dur : 170 ms QT Int : 456 ms P-R-T Axes : 87 -18 32 degrees QTc Int : 459 ms Sinus rhythm with 1st degree AV block Right bundle branch block LAFB Cannot rule out Inferior infarct (cited on or before 12-FEB-2023) Abnormal ECG When compared with ECG of 07-JAN-2024 09:38, Borderline criteria for Lateral infarct are no longer present T wave inversion no longer evident in Lateral leads Confirmed by Shayan Driscoll MD ([id number]) on 02/07/2024 8:23:25 AM Referred By: Confirmed By: Shayan Driscoll MD
[2024-02-06] MEDS: CATAPRES TAB 0.1 MG PO ONE (18:19)
[2024-02-06] MEDS: ZESTORETIC 20/25 MG PO SCH (20:10)
[2024-02-06] MEDS: COREG TAB 6.25 MG PO SCH (21:00)
[2024-02-06] MEDS: LASIX PO SCH (21:02)
[2024-02-07] MEDS: CELEXA PO SCH (10:28)
[2024-02-07] MEDS ORDERED: VASOTEC INJ 2.5 MG VIAL IVP PRN (11:49)
[2024-02-07] MEDS: VASOTEC INJ 2.5 MG VIAL IVP PRN (12:25)
[2024-02-07] MEDS: TRICOR TAB 145 MG PO SCH (21:30)
--- NOTE | 2024-02-07 22:35 | NOTE.SOAP ---
Soap Note Note for Day of Date of Exam: 02/07/24 Subjective Data Subjective Data: Patient no physically seen by me today. Discussed with his nurses. Patient still hypertensive despite his home medications Coreg, lasix and lisinopril. Requiring some IV vasotec as well. Wound vacuum still with significant output. Objective Data Temperature: 97.7 F Pulse Rate: 57 Respiratory Rate: 19 Blood Pressure: 167/72 O2 Sat by Pulse Oximetry: 99 Objective Data: Hypertensive , treating seroma right groin operative wound with wound vacuum Assessment Assessment: post op seroma right groin Plan Plan: Continue wound vacuum , await acceptance for Home Health application of wound vacuum.
[2024-02-08] MEDS: MIRALAX POWDER (1 DOSE 17 G) PO SCH (10:14)
[2024-02-09] MEDS: DILAUDID INJ IVP PRN (02:09)
--- NOTE | 2024-02-09 21:52 | NOTE.SOAP ---
Soap Note Note for Day of Date of Exam: 02/08/24 Subjective Data Subjective Data: Patient not physically seen by me. Discussed with his nurses. Wound vacuum in place with sero-sangunous fluid . Objective Data Temperature: 97.8 F Pulse Rate: 56 Respiratory Rate: 21 Blood Pressure: 158/67 O2 Sat by Pulse Oximetry: 97 Objective Data: s/p seroma right groin of post-op wound , s/p drainage and placement of wound vacuum Assessment Assessment: as above Plan Plan: Continue wound vacuum, [facility] home health consult.
--- NOTE | 2024-02-09 23:55 | NOTE.SOAP ---
Soap Note Note for Day of Date of Exam: 02/09/24 Subjective Data Subjective Data: Continues to improve, afebrile and drainage has decreased Objective Data Temperature: 98.3 F Pulse Rate: 56 Respiratory Rate: 21 Blood Pressure: 158/67 O2 Sat by Pulse Oximetry: 97 Objective Data: Wound right groin not red, drainage mostly serous. Assessment Assessment: post op seroma right groin, no redness Plan Plan: Wound vacuum right groin changed by me. Home Health has delivered the wound vac for home use. Will discharge home tomorrow.
[2024-02-10] MEDS: NS 250 ML IV 25 ML IV PRN (02:29)
[2024-02-10 06:39] LABS: BASOPHILS % (AUTO) 0.4 % (0.2-1.0); EOSINOPHILS # (AUTO) 0.5 x10^3/uL (0.0-0.2); EOSINOPHILS % (AUTO) 5.8 % (0.9-2.9); HEMATOCRIT 29.9 % (42.0-54.0); HEMOGLOBIN 9.6 g/dL (13.5-18.0); LYMPHOCYTES # (AUTO) 1.5 X10^3/uL (1.3-2.9); LYMPHOCYTES % (AUTO) 18.3 % (21.0-51.0); MEAN CORPUSCULAR HEMOGLOBIN 27.3 pg (27.0-34.0); MEAN CORPUSCULAR HGB CONC 32.1 g/dL (33.0-35.0); MEAN PLATELET VOLUME 8.1 fL (7.4-11.0); MONOCYTES # (AUTO) 0.6 x10^3/uL (0.3-0.8); NEUTROPHILS # (AUTO) 5.7 x10^3/uL (2.2-4.8); NEUTROPHILS % (AUTO) 68.5 % (42.0-75.0); PLATELET COUNT 264 X10^3/uL (150.0-450.0); RED BLOOD COUNT 3.52 X10^6/uL (4.7-6.0); RED CELL DISTRIBUTION WIDTH 16.8 % (11.6-16.5); WHITE BLOOD COUNT 8.4 X10^3/uL (3.6-10.0)
[2024-02-10 12:45] VITALS: BP 172/72; PULSE 52; RESP 20; TEMP 98.1; O2SAT 98
--- NOTE | 2024-02-10 22:13 | W.DIS.FURT ---
Summary of Discharge Discharge Summary of Date Date of Exam: 02/10/24 Admission Date Date of Admission: 02/05/24 Admission Diagnosis Hospital Course: This is a 68 year old male with history of significant peripheral vascular disease of both legs who has had recently a right femoral endarterectomy and patch angioplasty . In addition, he had a hybrid procedure with stenting of the completely occluded right superficial femoral artery. He has done well from the standpoint of perfusion with biphasic flow of both posterior tibial and dorsal pedis arteries at the ankle. However ,he has had significant serous drainage from the right groin and had developed a large seroma . He was admitted and on February 04 he had drainage of this seroma with placement of a wound vacuum. We have treated him with IV antibiotics. His white count remains normal. His basic metabolic profile has been normal. Wound vacuum was changed on February 08. Drainage is decreasing and is still mainly serous in character. He will be discharged home on his usual medications with a home wound vacuum in place and Home Health will be seeing him on a regular basis. I will see him in follow-up in 1 week. He will continue on all his usual home medications with the addition of Percocet , 5 milligram tablets, 1 every 6 hours PRN pain. He is currently on Xarelto and aspirin. Vital Signs: Vital Signs (72 hours) 02/09/24 21:52 02/07/24 22:34 02/09/24 23:50 Temperature 97.8 F 97.7 F 98.3 F Pulse Rate 56 L 57 L 56 L Pulse Rate [Apical] Respiratory Rate 21 19 21 Blood Pressure 158/67 167/72 158/67 Blood Pressure [Left Arm] O2 Sat by Pulse Oximetry 97 99 97 Oxygen Delivery Method Oxygen Flow Rate FIO2% 02/08/24 00:00 02/08/24 03:09 02/08/24 04:00 Temperature 97.8 F 98.6 F Pulse Rate Pulse Rate [Apical] 63 60 Respiratory Rate 21 18 Blood Pressure Blood Pressure [Left Arm] 179/77 175/75 O2 Sat by Pulse Oximetry 100 98 Oxygen Delivery Method Nasal Cannula Nasal Cannula Nasal Cannula Oxygen Flow Rate 2 2 2 FIO2% 28 02/08/24 07:31 02/08/24 07:00 02/08/24 11:52 Temperature 97.0 F L 97.6 F Pulse Rate Pulse Rate [Apical] 55 L 55 L Respiratory Rate 19 18 Blood Pressure Blood Pressure [Left Arm] 140/66 166/70 O2 Sat by Pulse Oximetry 94 L 98 Oxygen Delivery Method Nasal Cannula Nasal Cannula Nasal Cannula Oxygen Flow Rate 2 2 2 FIO2% 02/08/24 09:31 02/08/24 09:31 02/08/24 16:00 Temperature 97.9 F Pulse Rate 54 L Pulse Rate [Apical] 54 L Respiratory Rate 17 Blood Pressure Blood Pressure [Left Arm] 147/65 O2 Sat by Pulse Oximetry 96 97 Oxygen Delivery Method Nasal Cannula Nasal Cannula Oxygen Flow Rate 2 2 FIO2% 28 02/09/24 02:09 02/08/24 20:00 02/08/24 19:00 Temperature 97.8 F Pulse Rate Pulse Rate [Apical] 56 L Respiratory Rate 22 21 Blood Pressure Blood Pressure [Left Arm] 158/67 O2 Sat by Pulse Oximetry 97 Oxygen Delivery Method Nasal Cannula Nasal Cannula Oxygen Flow Rate 2 2 FIO2% 02/09/24 00:00 02/09/24 00:45 02/09/24 02:39 Temperature 97.8 F Pulse Rate Pulse Rate [Apical] 54 L Respiratory Rate 20 18 Blood Pressure Blood Pressure [Left Arm] 161/68 O2 Sat by Pulse Oximetry 96 Oxygen Delivery Method Nasal Cannula Room Air Oxygen Flow Rate 2 FIO2% 02/09/24 04:00 02/08/24 21:44 02/09/24 08:00 Temperature 98.4 F 97.9 F Pulse Rate Pulse Rate [Apical] 51 L 50 L Respiratory Rate 22 17 Blood Pressure Blood Pressure [Left Arm] 144/64 181/73 O2 Sat by Pulse Oximetry 96 99 Oxygen Delivery Method Nasal Cannula Nasal Cannula Nasal Cannula Oxygen Flow Rate 2 2 2 FIO2% 28 02/09/24 07:00 02/09/24 09:39 02/09/24 09:40 Temperature Pulse Rate 53 L Pulse Rate [Apical] Respiratory Rate Blood Pressure Blood Pressure [Left Arm] O2 Sat by Pulse Oximetry 97 Oxygen Delivery Method Nasal Cannula Nasal Cannula Oxygen Flow Rate 3 2 FIO2% 28 02/09/24 12:00 02/09/24 16:00 02/09/24 20:00 Temperature 99.0 F 97.1 F L Pulse Rate Pulse Rate [Apical] 58 L 56 L Respiratory Rate 18 18 Blood Pressure Blood Pressure [Left Arm] 143/63 165/70 O2 Sat by Pulse Oximetry 90 L 94 L Oxygen Delivery Method Nasal Cannula Nasal Cannula Nasal Cannula Oxygen Flow Rate 2 2 2 FIO2% 28 02/09/24 20:00 02/09/24 20:00 02/09/24 19:00 Temperature 98.3 F Pulse Rate 60 Pulse Rate [Apical] 58 L Respiratory Rate 22 Blood Pressure Blood Pressure [Left Arm] 171/74 O2 Sat by Pulse Oximetry 92 L 93 L Oxygen Delivery Method Nasal Cannula Nasal Cannula Oxygen Flow Rate 2 3 FIO2% 02/09/24 23:54 02/10/24 04:00 02/10/24 08:55 Temperature 98.6 F 98.1 F Pulse Rate Pulse Rate [Apical] 59 L 60 Respiratory Rate 20 18 Blood Pressure Blood Pressure [Left Arm] 171/70 157/71 O2 Sat by Pulse Oximetry 97 96 Oxygen Delivery Method Nasal Cannula Nasal Cannula Nasal Cannula Oxygen Flow Rate 2 2 2 FIO2% 28 02/10/24 08:55 02/10/24 08:00 02/10/24 07:00 Temperature 98.5 F Pulse Rate 56 L Pulse Rate [Apical] 56 L Respiratory Rate 19 Blood Pressure Blood Pressure [Left Arm] 171/74 O2 Sat by Pulse Oximetry 96 98 Oxygen Delivery Method Nasal Cannula Nasal Cannula Oxygen Flow Rate 2 3 FIO2% 02/10/24 12:00 Temperature 98.1 F Pulse Rate Pulse Rate [Apical] 52 L Respiratory Rate 20 Blood Pressure Blood Pressure [Left Arm] 172/72 O2 Sat by Pulse Oximetry 98 Oxygen Delivery Method Nasal Cannula Oxygen Flow Rate 2 FIO2% Labs: Laboratory Last Values WBC 8.4 X10^3/uL (3.6-10.0) 02/10/24 06:14 RBC 3.52 X10^6/uL (4.7-6.0) L 02/10/24 06:14 Hgb 9.6 g/dL (13.5-18.0) L 02/10/24 06:14 Hct 29.9 % (42.0-54.0) L 02/10/24 06:14 MCV 85.0 fL (80.0-100.0) 02/10/24 06:14 MCH 27.3 pg (27.0-34.0) 02/10/24 06:14 MCHC 32.1 g/dL (33.0-35.0) L 02/10/24 06:14 RDW 16.8 % (11.6-16.5) H 02/10/24 06:14 Plt Count 264 X10^3/uL (150.0-450.0) 02/10/24 06:14 MPV 8.1 fL (7.4-11.0) 02/10/24 06:14 Neut % (Auto) 68.5 % (42.0-75.0) 02/10/24 06:14 Lymph % (Auto) 18.3 % (21.0-51.0) L 02/10/24 06:14 [place] % (Auto) 7.0 % (0.0-13.0) 02/10/24 06:14 Eos % (Auto) 5.8 % (0.9-2.9) H 02/10/24 06:14 Baso % (Auto) 0.4 % (0.2-1.0) 02/10/24 06:14 Neut # (Auto) 5.7 x10^3/uL (2.2-4.8) H 02/10/24 06:14 Lymph # (Auto) 1.5 X10^3/uL (1.3-2.9) 02/10/24 06:14 [place] # (Auto) 0.6 x10^3/uL (0.3-0.8) 02/10/24 06:14 Eos # (Auto) 0.5 x10^3/uL (0.0-0.2) H 02/10/24 06:14 Baso # (Auto) 0.0 X10^3/uL (0.0-0.1) 02/10/24 06:14 Absolute Nucleated RBC 0.0 /100WBC 02/10/24 06:14 Sodium 140 mmol/L (136-145) 02/04/24 15:55 Corrected Sodium 141 mmol/L (136-145) 02/04/24 15:55 Potassium 4.2 mmol/L (3.5-5.1) 02/04/24 15:55 Chloride 106 mmol/L (98-107) 02/04/24 15:55 Carbon Dioxide 28.2 mmol/L (21-32) 02/04/24 15:55 BUN 21 mg/dL (7-18) H 02/04/24 15:55 Creatinine 1.09 mg/dL (0.70-1.30) 02/04/24 15:55 Est GFR (MDRD) Af Amer > 60 (>60) 02/04/24 15:55 Est GFR (MDRD) Non-Af > 60 (>60) 02/04/24 15:55 Glucose 128 mg/dL (65-99) H 02/04/24 15:55 POC Glucose (mg/dL) 116 mg/dL (65-99) H 02/10/24 11:45 Calcium 8.8 mg/dL (8.5-10.1) 02/04/24 15:55 Reason For Visit: SEROMA RIGHT UPPER THIGH Discharge Date Discharge Date: 02/10/24 Discharge Diagnosis All Active Problems (Updated 02/06/24 @ 14:15 by Alejandro Rowland) Postoperative seroma of skin after non-dermatologic procedure (Acute) Atherosclerosis of [place] arteries of extremities with rest pain, left leg (Acute) Atherosclerosis of [place] arteries of extremities with rest pain, right leg (Acute) Abdominal pain determined by examination (Acute) Acute diverticulitis (Acute) COPD (chronic obstructive pulmonary disease) (Chronic) CAD (coronary artery disease) (Chronic) HTN (hypertension) (Chronic) Pleural effusion (Acute) CHF (congestive heart failure) (Chronic) Edema (Acute) SOB (shortness of breath) (Acute) Plan of Treatment: Continue with present treatment and follow up plan. Pt is to keep follow up appointment as instructed and take medications as ordered. Discharge Medications Discharge Medications: Sulfa (Sulfonamide Antibiotics) [SULFA] Allergy (Verified 08/05/22 17:01) CONTINUE taking the following medications citalopram 40 mg tablet 40 mg PO QDAY 02/04/24 [History] nicotine 14 mg/24 hr daily transdermal patch 14 mg transdermal DAILY 02/04/24 [History] New Prescriptions oxycodone-acetaminophen 5 mg-325 mg tablet 1 tab PO Q6H PRN #30 tabs 02/10/24 [Rx] Discharge Disposition Assessment: see hospital course Discharge Plan Discharge Plan Hospital Course: This is a 68 year old male with history of significant peripheral vascular disease of both legs who has had recently a right femoral endarterectomy and patch angioplasty . In addition, he had a hybrid procedure with stenting of the completely occluded right superficial femoral artery. He has done well from the standpoint of perfusion with biphasic flow of both posterior tibial and dorsal pedis arteries at the ankle. However ,he has had significant serous drainage from the right groin and had developed a large seroma . He was admitted and on February 04 he had drainage of this seroma with placement of a wound vacuum. We have treated him with IV antibiotics. His white count remains normal. His basic metabolic profile has been normal. Wound vacuum was changed on February 08. Drainage is decreasing and is still mainly serous in character. He will be discharged home on his usual medications with a home wound vacuum in place and Home Health will be seeing him on a regular basis. I will see him in follow-up in 1 week. He will continue on all his usual home medications with the addition of Percocet , 5 milligram tablets, 1 every 6 hours PRN pain. He is currently on Xarelto and aspirin. Patient Disposition: HOME HEALTH SERVICE Condition: Stable Health Concerns: Post Hospitalization: new medications and changes needed to prevent readmission or further decline. Pt educated and given instructions on all concerns. Care Plan Goals: Problem: Pain/Alteration in Comfort Goal: Improve/ Resolve Pain; Achieve Pain Tolerance Instructions: Take pain medications as prescribed. Contact your primary care provider if your pain is unrelieved or worsens. Follow up with primary care provider as directed. Plan of Treatment: Continue with present treatment and follow up plan. Pt is to keep follow up appointment as instructed and take medications as ordered. Assessment: see hospital course Prescription drug monitoring program results: PDMP reviewed and no concerns identified Prescriptions: New oxycodone-acetaminophen 5-325 mg Tablet 1 tab PO Q6H MDD 4 PRNQty: 30 0RF No Action carvedilol [Coreg] 6.25 mg Tablet 6.25 mg PO BID nitroglycerin 0.2 mg/hr Patch 24 Hour 1 patch TRANSDERMAL Q24H Rx Instructions: allow nitrate-free interval of approx. 10-12 hrs per 24-hour period metformin 500 mg Tablet 500 mg PO BID furosemide [Lasix] 80 mg Tablet 40 mg PO BID docusate sodium 100 mg Capsule 200 mg PO DAILY Trelegy Ellipta 100-62.5-25 mcg Blister With Device See Rx Instructions .ROUTE .COMPLEX Rx Instructions: 1 inhalation daily for SOB nicotine 14 mg/24 hr Patch 24 Hour 14 mg transdermal DAILY citalopram 40 mg tablet 40 mg PO QDAY lisinopril-hydrochlorothiazide 20-12.5 mg tablet 1 tab PO QDAY simvastatin 40 mg tablet 1 tab PO QPM esomeprazole magnesium 40 mg capsule,delayed release(DR/EC) 1 cap PO BID fenofibrate 160 mg tablet 1 tab PO QDAY aspirin 81 mg Capsule 81 mg PO QDAY Xarelto 2.5 mg Tablet 2.5 mg PO BID Qty: 60 0RF oxycodone-acetaminophen [Percocet] 5-325 mg tablet 1 tab PO Q6H MDD 4 PRNQty: 30 0RF Follow ups/Referrals Follow ups/Referrals: LOW FLORENTINO HEALAravind [STAFF PHYSICIAN] - 1 WEEK Alejandro Rowland [Primary Care Provider] - 02/23/24 2:45 pm Instructions Instructions: Carotid Artery Disease, Carotid Artery Disease, [id number] Stand Alone Forms: Excuse From Work or School, Post Hospital Follow Up Care
--- NOTE | 2024-02-10 22:38 | DR.OPNOTE ---
OP NOTE Pre-Op Diagnosis: Bilateral iliac vein compression Post-Op Diagnosis: same Procedure Date Date Of Procedure: 02/10/24 Procedure: PROCEDURE: BILATERAL ILIAC VENOGRAMS, BILATERAL ILIAC VEIN INTRAVASCULAR ULTRASOUND, STENTING LEFT COMMON ILIAC VEIN NARRATIVE : The patient was taken to the operative suite and placed in the supine position. Both groins were prepped and draped in sterile fashion. The patient was administered intravenous sedation supervised by myself. Time out for the procedure obtained. Ultrasound used to identify the left greater saphenous vein and the skin overlying it infiltrated with 0.5% Marcaine . Ultrasound then use to guide puncture of the left greater saphenous vein and a 0.012 inch guide wire placed . Incision made over this guide wire at the skin edge with a # 11 knife blade and a micro sheath placed over the guide wire into the left greater saphenous vein and into the left femoral vein. The small guide wire exchanged for a 0.035 inch Advantage glide wire and the micro sheath exchanged for a 10 Fr vascular sheath. The right greater saphenous vein was identified using ultrasound and the skin overlying it infiltrated with 0.5% Marcaine Ultrasound used to guide puncture of the right greater saphenous vein and a 0.012 inch guide wire placed. Incision made over this guidewire at the skin edge with a # 11knife blade and a micro sheath placed over the guide wire into the right greater saphenous vein and into the right femoral vein. The small guide wire was exchanged for a 0.035 inch Advantage glide wire and the micro sheath exchanged for a 10 Fr vascular sheath . The patient was given 5000 units of intravenous heparin. Bilateral iliac venograms carried out showing bilateral iliac vein compression . Bilateral iliac vein intravascular ultrasound carried out over the wire on each side showing 41 % compression of the left common iliac vein and 52 % compression of the right common iliac vein. The left side was selected as it is the most symptomatic side. Over the wire we placed a Venous Wall stent measuring 16x 90 mm and positioned it over the area of compression. . This was balloon dilated with a 14 mm esophageal balloon inflating it to 5 mm of Hg and removing it. Post-procedure intravascular ultrasound showed excellent result. Wires and sheaths in both groins removed and direct pressure held over each groin puncture site for 10 minutes. The patient was given 30 mg of intravenous Protamine. Hemostatic dressing applied to each puncture site and the patient taken to same day surgery in good condition. Type of Anesthesia: Local (0.5% Marcaine ) Anesthesia Comment: plus MAC Findings: 41% compression left common iliac vein, 52 % compression right iliac vein Type of Fluids Used:: Lactated Ringers Total Amount of Fluid Infused:: 500cc EBL: < 50 cc Hardware: 16x90 mm Venous Wall stent Complications:: none Needle/Sponge Count:: correct Disposition/Condition: Pt. tolerated procedure without difficulty. Taken to [facility] in stable condition.
== END 2024-02-10 14:55 | disposition home health service (06) | DRG 920 ==
LOC: ICU → OBSVTOIN 14:20 → MED/SURG 02-06 16:11
PROVIDERS: ADMIT Surgery; ATTEND Surgery
DX: I25.10 Atherosclerotic heart disease of native coronary artery without angina pectoris; L76.34 Postprocedural seroma of skin and subcutaneous tissue following other procedure; I70.223 Atherosclerosis of native arteries of extremities with rest pain, bilateral legs; R94.31 Abnormal electrocardiogram [ECG] [EKG]; E11.65 Type 2 diabetes mellitus with hyperglycemia; Z68.41 Body mass index [BMI] 40.0-44.9, adult; E66.01 Morbid (severe) obesity due to excess calories; J44.9 Chronic obstructive pulmonary disease, unspecified; I10 Essential (primary) hypertension; Z98.890 Other specified postprocedural states; Z72.0 Tobacco use